=== PATIENT | female | born 1950 | race Caucasian/White ===

== ENCOUNTER 2016-08-05 16:18 | Outpatient (CLI) | payer MEDICARE, OTHER | END 2016-08-05 16:19 | disposition home or self-care (01) | DX: E56.1 Deficiency of vitamin K (principal); R73.09 Other abnormal glucose; E55.9 Vitamin D deficiency, unspecified ==

== ENCOUNTER 2017-02-04 11:35 | Outpatient (CLI) | payer MEDICARE, OTHER ==
[~2017-02-04 11:35] MED LIST: GADOBUTROL 7.5 MMOL/7.5 ML VIAL ONE
[2017-02-04 12:09] LABS: CREATININE 0.7 mg/dL (0.4-1.0)
[2017-02-04] MEDS ORDERED: GADOBUTROL 7.5 MMOL/7.5 ML VIAL IVP ONE (13:09)
--- NOTE | 2017-02-04 14:46 | MRI Report ---
EXAM: MRI BRAIN WITHOUT AND WITH CONTRAST EXAM DATE: 02/04/2017 01:44 PM. CLINICAL HISTORY: 66-year-old with history of benign brain tumor presenting with headache COMPARISON: MR brain 08/19/2015, 01/29/2010, and prior's. TECHNIQUE: Multiplanar, multisequence T1-weighted and fluid-sensitive MR sequences of the brain were performed. Sequences optimized for routine evaluation. Other: None. Without and with IV Contrast: 6 c c GADAVIST. FINDINGS: Brain Volume: Normal for age. Parenchyma/Dura: Again seen is a patchy area of enhancement within the medial right temporal lobe wit h extension into the right amygdala that measures approximately 10 x 13 x 19 mm (CC by TR by AP) that is unchanged in size or signal intensity from 08/19/2015. The lesion demonstrates minimal to mild T2/ FLAIR signal hyperintensity similar to prior study. There are associated susceptibility artifact with in the lesion that is unchanged from prior study. No new acute parenchymal hemorrhage, mass, or midline shift. Additional areas of T2/FLAIR signal hype rintensity seen similar to 08/19/2015.No areas of restricted diffusion to suggest acute infarct. No de finite new abnormal areas of susceptibility artifact. No new abnormal post-contrast enhancement. Pituitary: Normal. Ventricles/Cisterns: No definite abnormal extra-axial fluid collection/mass seen. Ventricles and sulc i appear age appropriate. Cisterns are patent. Fluid is seen within Meckel's caves. 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 Sinuses: Visualized paranasal sinuses appear clear. Mastoid air cells and middle ear cavities appear clear. Orbits: Normal. Vasculature: Visualized major intracranial flow voids appear maintained. Dural sinuses appear patent. Bones: Normal. Other: None. IMPRESSION: 1. Again seen is a patchy enhancing lesion within the medial right temporal lobe with small volume ex tension of the right amygdala that appears unchanged in size or signal characteristics from 08/19/2015 . 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 2. No acute infarct, acute intracranial hemorrhage, additional lesion, hydrocephalus, or additional a bnormal postcontrast enhancement. 3. Scattered white matter changes that appear similar to MR 08/19/2015 and while nonspecific may repre sent sequela of chronic small vessel ischemic disease. [facility] Referring Provider Line: [phone] SITE ID: [id number]
== END 2017-02-04 11:36 | disposition home or self-care (01) ==
LOC: LAB 11:35
PROVIDERS: ATTEND Nurse Practitioner Primary Care
DX: G93.9 Disorder of brain, unspecified (principal); R51 Headache
CPT/HCPCS: 36415; 70553; 82565; A9585

== ENCOUNTER 2017-06-15 08:00 | Outpatient (CLI) | payer MEDICARE, OTHER | END 2017-06-15 08:01 | disposition home or self-care (01) | LOC: LAB.R 08:00 | PROVIDERS: ATTEND Nurse Practitioner Primary Care | DX: M25.519 Pain in unspecified shoulder (principal); M54.2 Cervicalgia | CPT/HCPCS: 85651; 86140 ==

== ENCOUNTER 2017-06-24 10:25 | Outpatient (CLI) | payer MEDICARE, OTHER ==
--- NOTE | 2017-06-24 14:13 | XRAY Report ---
TWO VIEW CHEST: 06/24/2017 CLINICAL INDICATION: Upper respiratory infection. FINDINGS: Frontal and lateral views of the chest demonstrate a normal cardiac silhouette. The lungs are clear. No effusion or pneumothorax is present. IMPRESSION: NORMAL CHEST. TD: 06/24/2017 14:12
== END 2017-06-24 10:26 | disposition home or self-care (01) ==
LOC: DI 10:25
PROVIDERS: ATTEND Physician Assistant Medical
DX: J06.9 Acute upper respiratory infection, unspecified (principal)
CPT/HCPCS: 71046

== ENCOUNTER 2017-07-01 08:00 | Outpatient (CLI) | payer MEDICARE, OTHER ==
[2017-07-01 12:35] LABS: BASOPHILS % (AUTO) 0.6 %; EOSINOPHILS # (AUTO) 0.1 10^3/uL (0.0-0.7); EOSINOPHILS % (AUTO) 1.4 %; HGB - HEMOGLOBIN 14.9 g/dL (12.0-16.0); LYMPHOCYTES # (AUTO) 1.6 10^3/uL (1.5-3.5); LYMPHOCYTES % (AUTO) 19.1 %; MEAN CORPUSCULAR HEMOGLOBIN 28.7 pg (27.0-31.0); MEAN CORPUSCULAR HGB CONC 34.4 g/dL (32.0-36.0); MEAN CORPUSCULAR VOLUME 83.4 fL (81.0-99.0); MEAN PLATELET VOLUME 7.9 fL (7.9-10.8); MONOCYTES # (AUTO) 0.6 10^3/uL (0.0-1.0); MONOCYTES % (AUTO) 7.4 %; NEUTROPHILS % (AUTO) 71.5 %; PLT - PLATELET COUNT 263 10^3/uL (130-450); RED BLOOD COUNT 5.18 10^6/uL (4.20-5.40); WHITE BLOOD COUNT 8.4 x10^3/uL (4.8-10.8)
[2017-07-01 13:34] LABS: ALBUMIN 4.4 g/dL (3.2-5.5); ALBUMIN/GLOBULIN RATIO 1.2 (1.0-2.2); BILIRUBIN,TOTAL 0.7 mg/dL (0.2-1.0); CREATININE 0.9 mg/dL (0.4-1.0)
== END 2017-07-01 08:01 | disposition home or self-care (01) ==
LOC: LAB.R 08:00
PROVIDERS: ATTEND Physician Assistant Medical
DX: R53.1 Weakness (principal)
CPT/HCPCS: 80053; 85025

== ENCOUNTER 2017-07-08 08:00 | Outpatient (CLI) | payer MEDICARE, OTHER | END 2017-07-08 08:01 | disposition home or self-care (01) | LOC: LAB.R 08:00 | PROVIDERS: ATTEND Physician Assistant Medical | DX: J02.9 Acute pharyngitis, unspecified (principal) | CPT/HCPCS: 87070 ==

== ENCOUNTER 2017-08-19 12:45 | Outpatient (CLI) | payer MEDICARE, OTHER ==
[2017-08-19 13:12] LABS: CREATININE 0.7 mg/dL (0.4-1.0)
[2017-08-19] MEDS ORDERED: GADOBUTROL 7.5 MMOL/7.5 ML VIAL ONE (13:48)
--- NOTE | 2017-08-19 14:41 | CT Report ---
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 TECHNIQUE: Axial CT images of the chest were obtained without contrast. High resolution 1 mm supine inspiratory, supine expiratory and prone inspiratory images were obtained, in addition to a conventional noncontrast chest CT was performed. COMPARISON: No previous CT is available for comparison. FINDINGS: Allowing for the lack of intravenous contrast enhancement, the heart and great vessels are unremarkable. No hilar or mediastinal lymphadenopathy is present. No axillary adenopathy is seen. The lungs demonstrate subpleural blebs, predominantly in the lower lobes. There is no evidence of a spontaneous pneumothorax. There is a noncalcified pulmonary nodule in the anterior right lower lobe, measuring 6 mm (axial image 34). Minimal atelectatic changes are present. No effusion or pneumothorax is present. High resolution images reveal no evidence of interstitial lung disease. Limited evaluation of upper abdominal structures demonstrates normal adrenal glands. A small hiatal hernia is present. Osseous structures demonstrate degenerative changes. IMPRESSION: SUBPLEURAL LUNG CYSTS, COMPATIBLE WITH [id number]-[id number] SYNDROME. NO EVIDENCE OF PNEUMOTHORAX. 6 MM NONCALCIFIED PULMONARY NODULE IN THE ANTERIOR RIGHT LOWER LOBE (AXIAL IMAGE 34). FOLLOWUP SCAN IN 6 MONTHS IS RECOMMENDED TO EVALUATE FOR STABILITY. CT DOSE REDUCTION STATEMENT In accordance with CT protocol optimization, one or more of the following dose reduction techniques were utilized for this exam: automated exposure control, adjustment of mA and/or KV based on patient size, or use of iterative reconstructive technique. TD: 08/19/2017 14:40
== END 2017-08-19 12:46 | disposition home or self-care (01) ==
LOC: LAB 12:45
PROVIDERS: ATTEND Nurse Practitioner Primary Care
DX: J98.4 Other disorders of lung (principal); C65.9 Malignant neoplasm of unspecified renal pelvis
CPT/HCPCS: 36415; 71250; 82565

== ENCOUNTER 2017-08-26 07:43 | Outpatient (CLI) | payer MEDICARE, OTHER ==
[2017-08-26] MEDS ORDERED: GADOBUTROL 7.5 MMOL/7.5 ML VIAL ONE (08:09)
[2017-08-26] MEDS ORDERED: GADOBUTROL 7.5 MMOL/7.5 ML VIAL IVP ONE (09:06)
--- NOTE | 2017-08-26 14:48 | MRI Report ---
EXAM: MR ABDOMEN WITH AND WITHOUT CONTRAST (MR KIDNEYS) EXAM DATE: 08/26/2017 09:21 AM. 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 Rule out renal mass. COMPARISON: None. TECHNIQUE: Multiplanar breath-hold T1, T2, and DWI sequences obtained through the kidneys and abdomen on an MR scanner. Images obtained before and after administration of 6 mL Gadavist intravenous contr ast. Multiphase sequences obtained through the kidneys. FINDINGS: Kidneys: Normal size and contour. A 6 mm left upper interpolar cyst. No solid nodule or suspicious le jaden. Normal parenchymal enhancement without hydronephrosis. No perinephric fluid. 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 Mildly decreased parenc hymal signal on opposed a screening echo suggests mild steatosis. A 5 mm cyst in the left lobe. No hy pervascular or suspicious lesion identified. The liver dome is partially clipped. Gallbladder/Bile Ducts: Unremarkable. No gallbladder filling defect or wall thickening. Upper normal caliber CBD for age at 7 mm. No intrahepatic ductal dilatation. Pancreas: No significant findings. Spleen: Normal. Adrenals: No nodule. Other: No obvious intestinal abnormality. No free fluid or adenopathy. Unremarkable abdominal aorta. No marrow replacement process identified. IMPRESSION: 1. A small left renal cyst. Otherwise unremarkable kidneys. No renal mass. 2. Mild hepatic steatosis. [facility] Referring Provider Line: [phone] SITE ID: [id number]
== END 2017-08-26 07:44 | disposition home or self-care (01) ==
LOC: DI 07:43
PROVIDERS: ATTEND Nurse Practitioner Primary Care
DX: N28.1 Cyst of kidney, acquired (principal); K76.0 Fatty (change of) liver, not elsewhere classified
CPT/HCPCS: 74183; A9585

== ENCOUNTER 2017-09-01 08:18 | Outpatient (CLI) | payer MEDICARE, OTHER ==
[2017-09-01 12:53] LABS: BASOPHILS % (AUTO) 0.6 %; EOSINOPHILS # (AUTO) 0.1 10^3/uL (0.0-0.7); EOSINOPHILS % (AUTO) 1.6 %; LYMPHOCYTES # (AUTO) 1.5 10^3/uL (1.5-3.5); LYMPHOCYTES % (AUTO) 25.2 %; MEAN CORPUSCULAR HEMOGLOBIN 27.8 pg (27.0-31.0); MEAN CORPUSCULAR HGB CONC 33.2 g/dL (32.0-36.0); MEAN CORPUSCULAR VOLUME 83.7 fL (81.0-99.0); MEAN PLATELET VOLUME 8.9 fL (7.9-10.8); MONOCYTES # (AUTO) 0.5 10^3/uL (0.0-1.0); MONOCYTES % (AUTO) 8.7 %; NEUTROPHILS # (AUTO) 3.9 10^3/uL (1.5-6.6); NEUTROPHILS % (AUTO) 63.9 %; PLT - PLATELET COUNT 230 10^3/uL (130-450); RED BLOOD COUNT 4.33 10^6/uL (4.20-5.40); WHITE BLOOD COUNT 6.1 x10^3/uL (4.8-10.8)
[2017-09-01 13:15] LABS: ALBUMIN 4.3 g/dL (3.2-5.5); ALBUMIN/GLOBULIN RATIO 1.5 (1.0-2.2); ALKALINE PHOSPHATASE 81 IU/L (42-121); ALT ALANINE AMINOTRANSFERASE 17 IU/L (10-60); AST ASPARTATE AMINOTRANSFERASE 20 IU/L (10-42); BILIRUBIN,TOTAL 0.4 mg/dL (0.2-1.0); BUN - BLOOD UREA NITROGEN 19 mg/dL (6-20); CALCIUM 9.1 mg/dL (8.5-10.3); CARBON DIOXIDE - CO2 27 mmol/L (21-32); CHLORIDE 103 mmol/L (101-111); CHOL/HDL RATIO 4.1 (<4.4); CHOLESTEROL 195 mg/dL; CREATININE 0.6 mg/dL (0.4-1.0); GFR - MDRD 100 (>89); GLUCOSE 98 mg/dL (70-100); HDL CHOLESTEROL 48 mg/dL; LDL CHOLESTEROL,CALCULATED 112 mg/dL; LDL/HDL RATIO 2.3 (<4.4); SODIUM 136 mmol/L (135-145); TOTAL PROTEIN 7.1 g/dL (6.7-8.2); VLDL CHOLESTEROL 35 mg/dL
== END 2017-09-01 08:19 | disposition home or self-care (01) ==
LOC: LAB.N 08:18
PROVIDERS: ATTEND Nurse Practitioner Primary Care
DX: D68.2 Hereditary deficiency of other clotting factors (principal); Z79.899 Other long term (current) drug therapy; Z13.29 Encounter for screening for other suspected endocrine disorder; Z13.6 Encounter for screening for cardiovascular disorders
CPT/HCPCS: 36415; 80053; 80061; 83721; 84443; 85025

== ENCOUNTER 2017-09-06 10:52 | Outpatient (CLI) | payer MEDICARE, OTHER ==
--- NOTE | 2017-09-07 15:08 | Mammography Report ---
DIGITAL SCREENING MAMMOGRAM: 09/06/2017 CLINICAL INDICATION: A 67-year-old with history of benign biopsies for screening. COMPARISON: 10/2015. TECHNIQUE: Routine CC and MLO projections as well as bilateral laterally exaggerated craniocaudal views were obtained of the breasts. FINDINGS: The breasts again demonstrate heterogeneously dense fibroglandular parenchyma bilaterally. Post-biopsy changes are stable. Coarse and punctate, typically benign calcifications are present. No suspicious masses, clustered microcalcifications, or regions of architectural distortion are identified. IMPRESSION: BENIGN FINDINGS. RECOMMENDATION: Routine annual screening unless otherwise clinically indicated. BIRADS CATEGORY 2 - BENIGN FINDINGS. STANDARD QUALIFYING STATEMENTS: 1. This examination was reviewed with the aid of Computer-Aided Detection (CAD). 2. A negative or benign imaging report should not delay biopsy if clinically suspicious findings are present. Consider surgical consultation if warranted. More than 5% of cancers are not identified by imaging. 3. Dense breasts may obscure an underlying neoplasm. TD: 09/07/2017 15:07
== END 2017-09-06 10:53 | disposition home or self-care (01) ==
LOC: DI.N 10:52
PROVIDERS: ATTEND Internal Medicine
DX: Z12.31 Encounter for screening mammogram for malignant neoplasm of breast (principal)
CPT/HCPCS: 77067

== ENCOUNTER 2017-10-28 11:57 | Outpatient (CLI) | payer MEDICARE, OTHER ==
--- NOTE | 2017-11-09 16:12 | DEXA Report ---
Procedure Date: 10/28/2017 Accession Number: [id number] / [id number] Procedure: DEX - Dexa Spine and/or Hip CPT Code: FULL RESULT: EXAM: Dexa Spine and/or Hip DATE: 10/28/2017 12:31 PM CLINICAL HISTORY: POST MENOPAUSAL TECHNIQUE: Dual energy x-ray absorptiometry (DXA) was performed on a [employer] System. Regions measured are the AP Spine, femoral neck, and if needed forearm. COMPARISON: 10/29/2015 In accordance with the International Society for Clinical Densitometry (ISCD) guidelines, data from previous exams may be reanalyzed using current recommendations and techniques. This is done to allow a more accurate basis for comparison with the current study. FINDINGS: The data for the lumbar spine is as follows: BMD (g/cm/cm) T-SCORE Z-SCORE REGION L1 1.071 -0.5 1.2 L2 1.243 0.4 2.0 L3 1.366 1.4 3.1 TOTAL 1.229 0.5 2.2 NOTE: All evaluable vertebrae are used for classification The data for the hip is as follows: BMD (g/cm/cm) T-SCORE Z-SCORE REGION Neck 0.669 -2.7 -1.0 TOTAL 0.706 -2.4 -1.0 NOTE: The femoral neck or total proximal femur, whichever is lowest, is used for classification. DXA RESULTS SUMMARY: Spine SCAN DATE AGE BMD BMD CHANGE BMD CHANGE VS BASELINE PREVIOUS [age] 1.89 0.074* 6.4* 10[age]29/2015 [age] 1[age]155 -- -- * Denotes significant change at the 95% confidence level. Denotes dissimilar scan types or analysis methods. DXA RESULTS SUMMARY: Hip SCAN DATE AGE BMD BMD CHANGE BMD CHANGE VS BASELINE PREVIOUS 10/28/2017 67.5 0.706 -0.059* -7.7* 10[age]29/2015 [age] 0[age]765 -- -- * Denotes significant change at the 95% confidence level. Denotes dissimilar scan types or analysis methods. IMPRESSION: THE WHO CLASSIFICATION BASED ON THE INTERNATIONAL REFERENCE STANDARD IS OSTEOPOROSIS. THE FRACTURE RISK IS HIGH. RECOMMENDATION: Patients with diagnosis of osteoporosis or osteopenia should have regular bone mineral density assessment. For those eligible for Medicare, routine testing is allowed once every 2 years. Testing frequency can be increased for patients who have rapidly progressing disease or for those who are receiving medical therapy to restore bone mass. COMMENT: World Health Organization (WHO) definitions for osteoporosis and osteopenia: NORMAL BMD: T-score at -1.0 or higher, fracture risk is low OSTEOPENIA BMD: T-score between -1.0 and -2.5, fracture risk is increased. OSTEOPOROSIS BMD: T-score at -2.5 or lower, fracture risk is high. National Osteoporosis Foundation recommends: 1. Obtain adequate dietary calcium (at least 1200 mg per day) and vitamin D (400-800 international units per day). 2. Participate, as appropriate, in regular weightbearing and muscle-strengthening exercise. 3. Avoid tobacco use and reduce alcohol and caffeine intake. 4. For more detailed information see the website at www.NOF.org.
== END 2017-10-28 11:58 | disposition home or self-care (01) ==
LOC: DI 11:57
PROVIDERS: ATTEND Nurse Practitioner Primary Care
DX: M81.0 Age-related osteoporosis without current pathological fracture (principal)
CPT/HCPCS: 77080

== ENCOUNTER 2018-02-18 10:44 | Outpatient (CLI) | payer MEDICARE, OTHER ==
--- NOTE | 2018-02-18 16:21 | CT Report ---
Reason: PULMONARY NODULE Procedure Date: 02/18/2018 Accession Number: [id number] / [id number] Procedure: CT - Chest W/O CPT Code: FULL RESULT: EXAM: CT CHEST EXAM DATE: 02/18/2018 11:21 AM. CLINICAL HISTORY: Pulmonary nodule. COMPARISONS: Chest w/o contrast 08/19/2017 1:04 PM. TECHNIQUE: Routine helical CT imaging was performed through the chest. IV contrast: None. Reconstructions: Coronal and sagittal. In accordance with CT protocol optimization, one or more of the following dose reduction techniques were utilized for this exam: automated exposure control, adjustment of mA and/or KV based on patient size, or use of iterative reconstructive technique. FINDINGS: Lungs/Pleura: The previously described right lower lobe ovoid well-circumscribed nodule with subjective suggestion of fatty hilum medially now measures 6.0 x 3.6 x 3.0 mm on image 31 series 3 and image 30 series 6. The appearance is suggestive of a lymph node with less common location. No new nodules, bronchial thickening, consolidation, or edema. Pulmonary vasculature is normal. No pericardial or pleural effusion. No pneumothorax. Scant lung cysts are again seen. Mediastinum: Normal. No adenopathy or masses. The heart and great vessels are normal. Bones: No aggressive osseous lesions. Visualized Abdomen: Sliding hiatal hernia. Calcification in the region of the pancreatic tail is unchanged. Other: None. IMPRESSION: Stable 6 mm nodule in the right lower lobe with benign appearance. Per Fleischner Society, recommend CT follow-up in 12 months. If the finding is unchanged at that time, no further follow-up will be required. [facility]
== END 2018-02-18 10:45 | disposition home or self-care (01) ==
LOC: DI 10:44
PROVIDERS: ATTEND Nurse Practitioner Primary Care
DX: R91.1 Solitary pulmonary nodule (principal)
CPT/HCPCS: 71250

== ENCOUNTER 2018-04-07 08:00 | Outpatient (CLI) | payer MEDICARE, OTHER ==
[2018-04-07 17:12] LABS: BILIRUBIN,URINE NEGATIVE (NEGATIVE); CLARITY,URINE CLEAR (CLEAR); GLUCOSE, URINE (UA) NEGATIVE (NEGATIVE); KETONES,URINE (UA) NEGATIVE (NEGATIVE); LEUKOCYTE ESTERASE, URINE NEGATIVE (NEGATIVE); NITRITE,URINE NEGATIVE (NEGATIVE); OCCULT BLOOD,URINE SMALL (NEGATIVE); PROTEIN,URINE NEGATIVE (NEGATIVE); UROBILINOGEN,URINE 0.2 (NORMAL) E.U./dL (NORMAL)
== END 2018-04-07 23:59 | disposition home or self-care (01) ==
LOC: LAB.R 08:00
PROVIDERS: ATTEND Nurse Practitioner Primary Care
DX: R10.84 Generalized abdominal pain (principal)
CPT/HCPCS: 81003

== ENCOUNTER 2018-09-26 08:00 | Outpatient (CLI) | payer MEDICARE, OTHER ==
[2018-09-26 12:55] LABS: ALBUMIN 4.3 g/dL (3.2-5.5); ALBUMIN/GLOBULIN RATIO 1.5 (1.0-2.2); ALKALINE PHOSPHATASE 95 IU/L (42-121); ALT ALANINE AMINOTRANSFERASE 23 IU/L (10-60); AST ASPARTATE AMINOTRANSFERASE 24 IU/L (10-42); BASOPHILS % (AUTO) 0.5 %; BILIRUBIN,TOTAL 0.5 mg/dL (0.2-1.0); BUN - BLOOD UREA NITROGEN 16 mg/dL (6-20); CALCIUM 9.6 mg/dL (8.5-10.3); CARBON DIOXIDE - CO2 26 mmol/L (21-32); CHLORIDE 104 mmol/L (101-111); CHOL/HDL RATIO 4.4 (<4.4); CHOLESTEROL 203 mg/dL; CREATININE 0.8 mg/dL (0.4-1.0); EOSINOPHILS # (AUTO) 0.2 10^3/uL (0.0-0.7); EOSINOPHILS % (AUTO) 3.6 %; GFR - MDRD 71 (>89); GLUCOSE 107 mg/dL (70-100); HDL CHOLESTEROL 46 mg/dL; HGB - HEMOGLOBIN 10.2 g/dL (12.0-16.0); LDL CHOLESTEROL,CALCULATED 111 mg/dL; LDL/HDL RATIO 2.4 (<4.4); LYMPHOCYTES # (AUTO) 1.1 10^3/uL (1.5-3.5); LYMPHOCYTES % (AUTO) 18.8 %; MEAN CORPUSCULAR HEMOGLOBIN 21.2 pg (27.0-31.0); MEAN CORPUSCULAR HGB CONC 30.9 g/dL (32.0-36.0); MEAN CORPUSCULAR VOLUME 68.7 fL (81.0-99.0); MEAN PLATELET VOLUME 8.5 fL (7.9-10.8); MONOCYTES # (AUTO) 0.5 10^3/uL (0.0-1.0); MONOCYTES % (AUTO) 8.2 %; NEUTROPHILS # (AUTO) 4.2 10^3/uL (1.5-6.6); NEUTROPHILS % (AUTO) 68.9 %; PLT - PLATELET COUNT 271 10^3/uL (130-450); RED BLOOD COUNT 4.79 10^6/uL (4.20-5.40); RED CELL DISTRIBUTION WIDTH 18.2 % (12.0-15.0); SODIUM 139 mmol/L (135-145); TOTAL PROTEIN 7.2 g/dL (6.7-8.2); VLDL CHOLESTEROL 46 mg/dL
[2018-09-26 13:27] LABS: PLATELET ESTIMATE, MANUAL NORMAL (130-450,000) (NORMAL); PLATELET MORPHOLOGY RARE GIANT PLATELETS (NORMAL)
== END 2018-09-26 23:59 | disposition home or self-care (01) ==
LOC: LAB.N 08:00
PROVIDERS: ATTEND Nurse Practitioner
DX: I47.1 Supraventricular tachycardia (principal); Z79.899 Other long term (current) drug therapy; E55.9 Vitamin D deficiency, unspecified; D68.2 Hereditary deficiency of other clotting factors; F41.9 Anxiety disorder, unspecified; Z82.49 Family history of ischemic heart disease and other diseases of the circulatory system
CPT/HCPCS: 36415; 80053; 80061; 82306; 83721; 84443; 85025

== ENCOUNTER 2018-10-07 08:00 | Outpatient (CLI) | payer MEDICARE, OTHER ==
[2018-10-07 12:36] LABS: ABSOLUTE RETICS # AUTO 0.091 10^6/uL (0.020-0.110); BASOPHILS # (AUTO) 0.1 10^3/uL (0.0-0.1); BASOPHILS % (AUTO) 0.7 %; EOSINOPHILS # (AUTO) 0.4 10^3/uL (0.0-0.7); EOSINOPHILS % (AUTO) 5.2 %; HGB - HEMOGLOBIN 10.2 g/dL (12.0-16.0); LYMPHOCYTES # (AUTO) 1.2 10^3/uL (1.5-3.5); LYMPHOCYTES % (AUTO) 14.4 %; MEAN CORPUSCULAR HEMOGLOBIN 22.3 pg (27.0-31.0); MEAN CORPUSCULAR HGB CONC 31.8 g/dL (32.0-36.0); MEAN CORPUSCULAR VOLUME 70.1 fL (81.0-99.0); MEAN PLATELET VOLUME 8.2 fL (7.9-10.8); MEAN RETIC VALUE 98.3; MONOCYTES # (AUTO) 0.7 10^3/uL (0.0-1.0); MONOCYTES % (AUTO) 8.2 %; NEUTROPHILS # (AUTO) 5.8 10^3/uL (1.5-6.6); NEUTROPHILS % (AUTO) 71.5 %; PLT - PLATELET COUNT 279 10^3/uL (130-450); RED BLOOD COUNT 4.57 10^6/uL (4.20-5.40); RED CELL DISTRIBUTION WIDTH 17.9 % (12.0-15.0); WHITE BLOOD COUNT 8.1 x10^3/uL (4.8-10.8)
[2018-10-07 13:18] LABS: % IRON SATURATION 5 % (20-50); IRON 17 ug/dL (28-170); TOTAL IRON BINDING CAPACITY 353 ug/dL (250-450); TRANSFERRIN 252 mg/dL (192-382)
== END 2018-10-07 23:59 | disposition home or self-care (01) ==
LOC: LAB.N 08:00
PROVIDERS: ATTEND Nurse Practitioner
DX: D64.9 Anemia, unspecified (principal)
CPT/HCPCS: 36415; 82728; 83540; 84466; 85025; 85044

== ENCOUNTER 2018-10-07 11:33 | Outpatient (CLI) | payer MEDICARE, OTHER ==
--- NOTE | 2018-10-07 15:48 | XRAY Report ---
Reason: COUGH Procedure Date: 10/07/2018 Accession Number: [id number] / [id number] Procedure: XR - Chest 2 View X-Ray CPT Code: 19940 FULL RESULT: EXAM: CHEST RADIOGRAPHY EXAM DATE: 10/07/2018 11:54 AM. CLINICAL HISTORY: COUGH. Low-grade fever COMPARISON: 02/18/2018 CT and chest x-ray 06/24/2017. TECHNIQUE: 2 views. FINDINGS: Lungs/Pleura: Focal obscuration of the left hemidiaphragm suggests left lower lobe airspace process. No other focal opacities evident. No pleural effusion. No pneumothorax. Normal volumes. Mediastinum: Heart and mediastinal contours are unremarkable. Other: Minor degenerative change in the spine. IMPRESSION: Left lower lobe airspace process. Follow-up to complete radiographic clearing suggested. [facility]
== END 2018-10-07 11:34 | disposition home or self-care (01) ==
LOC: DI 11:33
PROVIDERS: ATTEND Nurse Practitioner
DX: R05 Cough (principal); D64.9 Anemia, unspecified
CPT/HCPCS: 36415; 71046; 82728; 83540; 84466; 85025; 85044

== ENCOUNTER 2018-10-11 08:00 | Outpatient (CLI) | payer MEDICARE, OTHER | END 2018-10-11 23:59 | disposition home or self-care (01) | LOC: LAB.R 08:00 | PROVIDERS: ATTEND Nurse Practitioner | DX: D64.9 Anemia, unspecified (principal) | CPT/HCPCS: 82274 ==

== ENCOUNTER 2018-10-17 09:20 | Outpatient (CLI) | payer MEDICARE, OTHER ==
--- NOTE | 2018-10-17 09:58 | XRAY Report ---
Reason: COUGH Procedure Date: 10/17/2018 Accession Number: [id number] / [id number] Procedure: WCP - Chest 2 View X-Ray CPT Code: 96747 FULL RESULT: EXAM: CHEST RADIOGRAPHY EXAM DATE: 10/17/2018 09:39 AM. CLINICAL HISTORY: COUGH. COMPARISON: CHEST 2 VIEW 10/07/2018 11:51 AM. TECHNIQUE: 2 views. FINDINGS: Lungs/Pleura: No focal opacities evident. No pleural effusion. No pneumothorax. Normal volumes. Mediastinum: Heart and mediastinal contours are unremarkable. Other: None. IMPRESSION: Normal 2-view chest radiography. [facility]
== END 2018-10-17 09:21 | disposition home or self-care (01) ==
LOC: DI.WCP 09:20
PROVIDERS: ATTEND Family Medicine
DX: R05 Cough (principal)
CPT/HCPCS: 71046

== ENCOUNTER 2018-11-05 21:43 | Emergency (ER) | payer MEDICARE, OTHER ==
[2018-11-05 22:30] LABS: BASOPHILS % (AUTO) 0.3 %; EOSINOPHILS # (AUTO) 0.7 10^3/uL (0.0-0.7); EOSINOPHILS % (AUTO) 8.2 %; HGB - HEMOGLOBIN 10.8 g/dL (12.0-16.0); LYMPHOCYTES # (AUTO) 1.6 10^3/uL (1.5-3.5); LYMPHOCYTES % (AUTO) 18.3 %; MEAN CORPUSCULAR HEMOGLOBIN 21.3 pg (27.0-31.0); MEAN CORPUSCULAR VOLUME 73.2 fL (81.0-99.0); MEAN PLATELET VOLUME 9.8 fL (7.9-10.8); MONOCYTES % (AUTO) 11.4 %; NEUTROPHILS # (AUTO) 5.4 10^3/uL (1.5-6.6); NEUTROPHILS % (AUTO) 61.3 %; PLT - PLATELET COUNT 312 10^3/uL (130-450); RED BLOOD COUNT 5.08 10^6/uL (4.20-5.40); RED CELL DISTRIBUTION WIDTH 18.4 % (12.0-15.0); WHITE BLOOD COUNT 8.7 x10^3/uL (4.8-10.8)
[2018-11-05 22:43] LABS: ALBUMIN 4.3 g/dL (3.2-5.5); ALBUMIN/GLOBULIN RATIO 1.3 (1.0-2.2); BILIRUBIN,TOTAL 0.6 mg/dL (0.2-1.0); CALCIUM 9.7 mg/dL (8.5-10.3); CREATININE 0.9 mg/dL (0.4-1.0); TOTAL PROTEIN 7.6 g/dL (6.7-8.2)
--- NOTE | 2018-11-05 22:46 | ED Physician Documentation ---
PD HPI NVD - Stated complaint Stated Complaint: BLOODY STOOL - Chief complaint Chief Complaint: Abd Pain - History obtained from History obtained from: Patient - History of Present Illness Timing - onset: Today (She is been sick with respiratory symptoms for the referral of a month. She is on doxycycline a few weeks ago, but has not been on it for few weeks. Tonight she has had some abdominal cramps but no pain per se with some diarrhea and blood on the toilet paper more than in the stool. She denies weakness or syncope. She had a last colonoscopy about 4 years ago with diverticular disease.) Review of Systems Constitutional: denies: Fever, Chills Nose: reports: Rhinorrhea / runny nose, Other (sneezing) Respiratory: denies: Dyspnea, Hemoptysis GI: reports: Nausea (for weeks), Diarrhea, Bloody / black stool. denies: Abdominal Pain, Vomiting, Hematemesis PD PAST MEDICAL HISTORY - Past Medical History Past Medical History: Yes Cardiovascular: Other Respiratory: Other Musculoskeletal: Osteoarthritis - Past Surgical History Ortho: Spine surgery - Allergies Allergies/Adverse Reactions: Allergies Allergy/AdvReac Type Severity Reaction Status Date / Time morphine AdvReac Itching Verified 11/05/18 21:51 - Social History Does the pt smoke?: No Smoking Status: Never smoker Does the pt drink ETOH?: No Does the pt have substance abuse?: No - Immunizations Immunizations are current?: Yes - POLST Patient has POLST: No PD ED PE NORMAL - Vitals Vital signs reviewed: Yes - General General: Alert and oriented X 3, No acute distress - Abdomen Abdomen: Normal bowel sounds, Soft, Non tender - Rectal Rectal: Other (no ext hemorrhoids, no gross blood) - Derm Derm: Normal color, Warm and dry - Extremities Extremities: No edema, No calf tenderness / cord - Neuro Neuro: Alert and oriented X 3 Results - Vitals Vitals: Vital Signs - 24 hr 11/05/18 11/05/18 11/05/18 21:48 21:50 22:57 Temperature 36.3 C L Heart Rate 110 H 110 H 11 L Respiratory 18 18 16 Rate Blood Pressure 145/89 H 145/89 H 135/83 H O2 Saturation 97 97 96 Oxygen O2 Source Room air - Labs Labs: Laboratory Tests 11/05/18 11/05/18 11/05/18 22:20 22:20 22:20 WBC 8.7 RBC 5.08 Hgb 10.8 L Hct 37.2 MCV 73.2 L MCH 21.3 L MCHC 29.0 L RDW 18.4 H Plt Count 312 MPV 9.8 Neut # (Auto) 5.4 Lymph # (Auto) 1.6 Benton # (Auto) 1.0 Eos # (Auto) 0.7 Baso # (Auto) 0.0 Absolute Nucleated RBC 0.00 Nucleated RBC % 0.0 PT 12.4 INR 1.1 Sodium 138 Potassium 3.4 L Chloride 105 Carbon Dioxide 22 Anion Gap 11.0 BUN 18 Creatinine 0.9 Estimated GFR (MDRD) 62 L Glucose 144 H Calcium 9.7 Total Bilirubin 0.6 AST 18 ALT 19 Alkaline Phosphatase 99 Total Protein 7.6 Albumin 4.3 Globulin 3.3 Albumin/Globulin Ratio 1.3 Lipase 41 PD MEDICAL DECISION MAKING - ED course ED course: 68yo woman with seemingly stable LGI bleed assoc with diarrhea, could be infectious. H/H slightly better than last draw. Stool sent. Advised need for c- scope, RTED if worse. Departure - Departure Disposition: 01 Home, Self Care Clinical Impression: Diarrhea, Hematochezia Condition: Good Record reviewed to determine appropriate education?: Yes Health Concerns: She presents with diarrhea that is bloody, no external hemorrhoids. Her hemoglobin is stable to slightly higher than her last. Plan of Treatment: Watchful waiting at home, stool culture and C. difficile tests. To follow-up with primary care physician for referral for colonoscopy. To return if worse. Instructions: ED Hematochezia Stable Discharge Date/Time: 11/05/18 22:57
[2018-11-05 22:48] LABS: INR 1.1 (0.8-1.2); PT - PROTHROMBIN TIME 12.4 secs (9.9-12.6)
[2018-11-05 22:58] VITALS: BP 135/83
== END 2018-11-05 22:57 | disposition home or self-care (01) ==
LOC: ED 21:43
DX: K92.1 Melena (principal); R19.7 Diarrhea, unspecified
CPT/HCPCS: 36415; 80053; 83690; 85025; 85610; 86850; 86900; 86901; 87045; 87046; 87493; 99283

== ENCOUNTER 2018-11-17 18:58 | Outpatient (CLI) | payer MEDICARE, OTHER ==
--- NOTE | 2018-11-17 21:21 | Ultrasound Report ---
Reason: GALLBLADDER DISORDER Procedure Date: 11/17/2018 Accession Number: [id number] / [id number] Procedure: US - Abdomen Complete CPT Code: FULL RESULT: EXAM: ABDOMEN ULTRASOUND EXAM DATE: 11/17/2018 07:12 PM. CLINICAL HISTORY: Gallbladder disorder. Pain. COMPARISON: ABDOMEN W/WO 08/26/2017 8:00 AM. TECHNIQUE: Real-time scanning was performed with static images obtained. FINDINGS: Liver: Diffusely echogenic. Previously described left lobe cyst not clearly visualized. Small hypoechoic nodule in right lobe measuring 1.3 x 1.4 x 1.8 cm with some subtle vascularity suggesting it may be solid. Overall normal sized, 15.5 cm. Main portal vein flow: Hepatopetal. Gallbladder: Small non-mobile echogenicity measuring about 0.4 cm in diameter. No definite stones, wall thickening, or localized tenderness. Biliary System: Common bile duct measures 6 mm. No intrahepatic or extrahepatic ductal dilatation. Pancreas: Echogenic pancreas. Otherwise unremarkable. Kidneys: Right: 10.0 cm longitudinally. Normal. No contour-deforming mass, stones, or hydronephrosis. Left: 10.5 cm longitudinally. Normal. No contour-deforming mass, stones, or hydronephrosis. Spleen: 10.1 x 3.6 x 7.8 cm. Normal in size and echotexture. Aorta and Inferior Vena Cava: Unremarkable. Other: None. IMPRESSION: 1. Fatty liver. 2. Small hypoechoic nodule in the right lobe with questionable vascularity. Further characterization with dedicated CT scan is recommended. 3. Small gallbladder polyp. [facility]
== END 2018-11-17 18:59 | disposition home or self-care (01) ==
LOC: DI 18:58
PROVIDERS: ATTEND Family Medicine
DX: K76.0 Fatty (change of) liver, not elsewhere classified (principal); K82.4 Cholesterolosis of gallbladder; K76.9 Liver disease, unspecified
CPT/HCPCS: 76700

== ENCOUNTER 2018-11-21 10:19 | Outpatient (CLI) | payer MEDICARE, OTHER ==
[2018-11-21] MEDS ORDERED: SINCALIDE 5 MCG VIAL ONE (11:35)
[2018-11-21] MEDS ORDERED: SINCALIDE 1.2 MCG in SODIUM CHLORIDE 0.9% 50 ML IV ONE (13:20)
--- NOTE | 2018-11-22 08:48 | Nuclear Medicine Report ---
Reason: GALLBLADDER DISORDER Procedure Date: 11/21/2018 Accession Number: [id number] / [id number] Procedure: NM - Hepatobiliary HIDA w/ Rx CPT Code: FULL RESULT: EXAM: HEPATOBILIARY SCAN WITH CCK/KINEVAC ADMINISTRATION EXAM DATE: 11/21/2018 01:01 PM. CLINICAL HISTORY: GALLBLADDER DISORDER. Right-sided abdominal pain. COMPARISON: ABDOMEN COMPLETE 11/17/2018 7:12 PM. TECHNIQUE: Following the intravenous administration of 5.4 mCi of Tc99m Mebrofenin, a hepatobiliary scan was done centered on the liver and gallbladder in multiple sequential images and projections. Following the intravenous administration of 1.2 mcg of CCK/ Kinevac over the course of approximately 60 minutes, dynamic imaging was done and the gallbladder ejection fraction was calculated. FINDINGS: Normal extraction of tracer from the blood pool indicating normal hepatocellular function. The liver size and shape is grossly within normal limits. There is activity visualized within the bile ducts, gallbladder, and small bowel during the first hour. With CCK administration, the gallbladder demonstrates an effective contraction. The gallbladder ejection fraction is calculated to be 94%, well above the lower limit of normal of 38% for a 60-minute injection. The patient did not report symptoms after CCK administration. No evidence of enteric reflux into the stomach. IMPRESSION: 1. Patent cystic duct. 2. Patent common bile duct. 3. Negative for acute or chronic cholecystitis. 4. No enterogastric bile reflux. 5. Gallbladder ejection fraction of 94%. SOFÍAA
== END 2018-11-21 10:20 | disposition home or self-care (01) ==
LOC: DI 10:19
PROVIDERS: ATTEND Family Medicine
DX: K82.9 Disease of gallbladder, unspecified (principal)
CPT/HCPCS: 78227; J7040

== ENCOUNTER 2019-01-10 14:17 | Outpatient (CLI) | payer MEDICARE, OTHER | END 2019-01-10 14:18 | disposition home or self-care (01) | LOC: RT 14:17 | PROVIDERS: ATTEND Nurse Practitioner | DX: J45.991 Cough variant asthma (principal) | CPT/HCPCS: 94010 ==

== ENCOUNTER 2019-01-16 18:39 | Inpatient (IN) | payer MEDICARE, OTHER ==
[2019-01-16 19:54] LABS: BILIRUBIN,URINE NEGATIVE (NEGATIVE); GLUCOSE, URINE (UA) NEGATIVE (NEGATIVE); KETONES,URINE (UA) TRACE mg/dL (NEGATIVE); LEUKOCYTE ESTERASE, URINE NEGATIVE (NEGATIVE); NITRITE,URINE NEGATIVE (NEGATIVE); OCCULT BLOOD,URINE MODERATE (NEGATIVE); PROTEIN,URINE NEGATIVE (NEGATIVE); UROBILINOGEN,URINE 0.2 (NORMAL) E.U./dL (NORMAL)
[2019-01-16 19:55] LABS: CLARITY,URINE CLEAR (CLEAR)
[2019-01-16 20:02] LABS: BACTERIA,URINE None Seen /HPF (None Seen); MUCUS,URINE Moderate Strands; RBC,URINE 0-5 /HPF (0-5); SQUAMOUS EPITHELIAL CELL,UR NONE SEEN (<= Few)
[2019-01-16 20:44] LABS: BASOPHILS # (AUTO) 0.1 10^3/uL (0.0-0.1); BASOPHILS % (AUTO) 0.3 %; EOSINOPHILS # (AUTO) 0.2 10^3/uL (0.0-0.7); EOSINOPHILS % (AUTO) 1.5 %; HGB - HEMOGLOBIN 12.1 g/dL (12.0-16.0); LYMPHOCYTES # (AUTO) 1.7 10^3/uL (1.5-3.5); MEAN CORPUSCULAR HEMOGLOBIN 23.2 pg (27.0-31.0); MEAN CORPUSCULAR HGB CONC 30.6 g/dL (32.0-36.0); MEAN PLATELET VOLUME 9.3 fL (7.9-10.8); MONOCYTES # (AUTO) 1.1 10^3/uL (0.0-1.0); MONOCYTES % (AUTO) 7.3 %; NEUTROPHILS % (AUTO) 79.2 %; PLT - PLATELET COUNT 348 10^3/uL (130-450); RED BLOOD COUNT 5.21 10^6/uL (4.20-5.40); RED CELL DISTRIBUTION WIDTH 20.3 % (12.0-15.0); WHITE BLOOD COUNT 15.2 x10^3/uL (4.8-10.8)
[2019-01-16 20:56] LABS: ALBUMIN 4.4 g/dL (3.2-5.5); ALBUMIN/GLOBULIN RATIO 1.2 (1.0-2.2); BILIRUBIN,TOTAL 0.4 mg/dL (0.2-1.0); CALCIUM 9.4 mg/dL (8.5-10.3); CREATININE 0.8 mg/dL (0.4-1.0)
[2019-01-16 21:04] LABS: PLATELET ESTIMATE, MANUAL NORMAL (130-450,000) (NORMAL); PLATELET MORPHOLOGY NORMAL APPEARANCE (NORMAL)
--- NOTE | 2019-01-16 21:27 | ED Physician Documentation ---
PD HPI ABD PAIN - Stated complaint Stated Complaint: FEVER/ABD PAIN - Chief complaint Chief Complaint: Abd Pain - History obtained from History obtained from: Patient - History of Present Illness Timing - onset: How many weeks ago (1) Timing - duration: Weeks (1) Timing - details: Gradual onset, Waxing and waning Pain level max: 8 Pain level now: 6 Quality: Aching, Pain Location: RLQ Radiation: No: Chest, , Lower back, Left flank, Left shoulder, Right flank, Right shoulder, Upper back Improved by: Laying still Worsened by: Moving Associated symptoms: Nausea, Dysuria. No: Fever, Vomiting, Hematemesis, Diarrhea, Constipation, Melena, Hematochezia, Vaginal bleeding, Vaginal dc Similar symptoms before: Has not had sx before Recently seen: Not recently seen Review of Systems Ten Systems: 10 systems reviewed and negative Constitutional: denies: Fever, Chills Respiratory: denies: Cough GI: denies: Vomiting, Constipation, Diarrhea Skin: denies: Rash Musculoskeletal: denies: Neck pain, Back pain Neurologic: denies: Numbness, Headache PD PAST MEDICAL HISTORY - Past Medical History Past Medical History: Yes Cardiovascular: Other (tachycardia) Respiratory: Other Musculoskeletal: Osteoarthritis - Past Surgical History Ortho: Spine surgery - Present Medications Home Medications: Ambulatory Orders Medication Instructions Recorded Confirmed Albuterol Sulfate [Proair Hfa 1 - 2 puffs INH PRN PRN 01/16/19 01/16/19 Inhaler] Fluticasone Propion/Salmeterol 1 cap INH DAILY 01/16/19 01/16/19 [Wixela 100-50 Inhub] Meloxicam 1 tab PO DAILY 01/16/19 01/16/19 Saccharomyces Boulardii [Florastor] 1 cap PO DAILY 01/16/19 01/16/19 raNITIdine [Zantac] 1 tab PO DAILY 01/16/19 01/16/19 - Allergies Allergies/Adverse Reactions: Allergies Allergy/AdvReac Type Severity Reaction Status Date / Time morphine AdvReac Itching Verified 01/16/19 19:24 - Social History Does the pt smoke?: No Smoking Status: Never smoker Does the pt drink ETOH?: No Does the pt have substance abuse?: No - Immunizations Immunizations are current?: Yes - POLST Patient has POLST: No PD ED PE NORMAL - Vitals Vital signs reviewed: Yes - General General: Alert and oriented X 3, No acute distress - HEENT HEENT: Moist mucous membranes - Neck Neck: Supple, no meningeal sign - Cardiac Cardiac: RRR - Respiratory Respiratory: No respiratory distress, Clear bilaterally - Abdomen Abdomen: Soft, Non distended, Other (TTP RLQ at McBurney's point. No peritoneal signs.) - Back Back: No CVA TTP, No spinal TTP - Derm Derm: Warm and dry, No rash - Neuro Neuro: Alert and oriented X 3 Results - Vitals Vitals: Vital Signs - 24 hr 01/16/19 01/16/19 01/16/19 19:20 21:09 21:59 Temperature 37.7 C H 37.9 C H 37.9 C H Heart Rate 142 H 132 H 104 H Respiratory 20 18 17 Rate Blood Pressure 141/103 H 159/100 H 137/86 H O2 Saturation 97 100 96 01/16/19 23:09 Temperature 37.7 C H Heart Rate 94 Respiratory 16 Rate Blood Pressure 135/82 H O2 Saturation 98 Oxygen O2 Source Room air - Labs Labs: Laboratory Tests 01/16/19 01/16/19 01/16/19 19:40 20:39 20:39 WBC 15.2 H RBC 5.21 Hgb 12.1 Hct 39.6 MCV 76.0 L MCH 23.2 L MCHC 30.6 L RDW 20.3 H Plt Count 348 MPV 9.3 Neut # (Auto) 12.0 H Lymph # (Auto) 1.7 [place] # (Auto) 1.1 H Eos # (Auto) 0.2 Baso # (Auto) 0.1 Absolute Nucleated RBC 0.00 Nucleated RBC % 0.0 Manual Slide Review Indicated WBC Morphology NORMAL APPEARANCE Platelet Estimate NORMAL (130-450,000) Platelet Morphology NORMAL APPEARANCE RBC Morph Micro Appear 1+ MICROCYTOSIS Sodium 138 Potassium 4.1 Chloride 103 Carbon Dioxide 24 Anion Gap 11.0 BUN 16 Creatinine 0.8 Estimated GFR (MDRD) 71 L Glucose 119 H Calcium 9.4 Total Bilirubin 0.4 AST 18 ALT 17 Alkaline Phosphatase 98 Total Protein 8.0 Albumin 4.4 Globulin 3.6 Albumin/Globulin Ratio 1.2 Lipase 26 Urine Color YELLOW Urine Clarity CLEAR Urine pH 6.0 Ur Specific [place] 1.010 Urine Protein NEGATIVE Urine Glucose (UA) NEGATIVE Urine Ketones TRACE Urine Occult Blood MODERATE H Urine Nitrite NEGATIVE Urine Bilirubin NEGATIVE Urine Urobilinogen 0.2 (NORMAL) Ur Leukocyte Esterase NEGATIVE Urine RBC 0-5 Urine WBC 0-3 Ur Squamous Epith Cells NONE SEEN Urine Bacteria None Seen Urine Mucus Moderate Strands Ur Microscopic Review INDICATED Urine Culture Comments NOT INDICATED - Rads (name of study) CT abd/pelvis Radiology: Prelim report reviewed, EMP read contemporaneously, See rad report (1. The distal appendix is dilated and fluid-filled. At the base of the appe ndix/cecum, there is a 5.5 x 5.7 x 5.3 cm complex cystic and solid mass favored represent abscess/phlegmon in the setting of perforated appendicitis, however, perforated cecal mass not excluded. No free intraperitoneal air. This mass abuts the dome of the bladder and may be adherent, however, there is no bladder wall thickening. Recommend surgical consultation. 2. Within the peripheral aspect of the right lobe of the liver, there are 2 hypoenhancing masses, one measuring 2.8 cm and the other measuring 1.7 cm. Findings favored to represent hepatic abscesses, however, metastatic disease cannot be completely excluded. 3. There is a 5 mm pulmonary nodule within the right lower lobe. Recommend nonemergent CT chest for further evaluation. 4. Hysterectomy. 5. Other chronic findings detailed above. ) PD MEDICAL DECISION MAKING - ED course Complexity details: reviewed results, re-evaluated patient, considered differential, d/w patient, d/w family, d/w project consultant ED course: 68-year-old female presents to the emergency department with right lower quadrant abdominal pain for the past week. Has a leukocytosis. Appears to have an appendicitis along with a perforation and abscess/phlegmon on in the cecum. Also potentially has liver abscesses. Discussed the case with Dr. Mcintyre, general surgery who will evaluate the patient. Given IV zosyn and flagyl. Will admit. This document was made in part using voice recognition software. While efforts are made to proofread this document, sound alike and grammatical errors may occur. Departure - Departure Disposition: [facility] DC/Xfer Clinical Impression: Appendicitis Qualifiers: Appendicitis type: acute appendicitis Acute appendicitis type: with localized peritonitis Appendicitis gangrene presence: unspecified whether gangrene present Appendicitis perforation presence: with perforation Appendicitis abscess presence: with abscess Qualified Code(s): K35.33 - Acute appendicitis with perforation and localized peritonitis, with abscess Condition: Stable
[2019-01-16] MEDS ORDERED: IOVERSOL 320 100 ML VIAL IVP ONE ×2 (22:10→22:22)
[2019-01-16] MEDS ORDERED: PIPERACILLIN/TAZOBACTAM 3.375 GM in SODIUM CHLORIDE 0.9% MINIBAG 100 ML IV STA (22:45)
[2019-01-16] MEDS ORDERED: metroNIDAZOLE 500 MG/100 ML 500 MG/100 ML BAG IV ONE (22:45)
--- NOTE | 2019-01-16 23:18 | CT Report ---
Reason: RLQ abd pain Procedure Date: 01/16/2019 Accession Number: [id number] / [id number] Procedure: CT - Abdomen/Pelvis W CPT Code: FULL RESULT: EXAM: CT ABDOMEN AND PELVIS EXAM DATE: 01/16/2019 10:23 PM. CLINICAL HISTORY: Right lower quadrant abdominal pain. COMPARISONS: None. TECHNIQUE: Routine helical CT imaging was performed through the abdomen and pelvis. IV contrast: 100 cc Optiray 320. Enteric contrast: No. Reconstructions: Coronal and sagittal. In accordance with CT protocol optimization, one or more of the following dose reduction techniques were utilized for this exam: automated exposure control, adjustment of mA and/or KV based on patient size, or use of iterative reconstructive technique. FINDINGS: Images chest: Small hiatal hernia. Scarring the left lingula and scattered air cysts in the lung bases. There is a 5 mm pulmonary nodule within the right lower lobe. Liver: Within the peripheral aspect of the right lobe of the liver, there are 2 hypoenhancing masses, one measuring 2.8 cm and the other measuring 1.7 cm. Gallbladder: Unremarkable. Biliary: Unremarkable. Pancreas: Unremarkable. Spleen: Unremarkable. Adrenal glands: Unremarkable. Kidneys: Unremarkable. Urinary bladder: The below described complex cystic and solid mass adjacent to the cecum/appendix abuts the dome of the bladder without obvious bladder wall thickening. Reproductive organs: Hysterectomy. Bowel: Sigmoid and descending colonic diverticulosis without obvious evidence of diverticulitis. Stomach: Unremarkable. Appendix: The distal appendix is dilated and fluid-filled. At the base of the appendix/cecum, there is a 5.5 x 5.7 x 5.3 cm complex cystic and solid mass favored represent abscess/phlegmon in the setting of perforated appendicitis, however, perforated cecal mass not excluded. Miscellaneous: No free fluid. No extraluminal gas. Aorta: Mild aortic atherosclerosis. Normal in caliber. Lymph nodes: There are several prominent and borderline enlarged lymph nodes in the right lower quadrant mesentery. Bones: Status post L4-L5 disk replacement. No suspicious osseous lesions. Sidewalls: Unremarkable. IMPRESSION: 1. The distal appendix is dilated and fluid-filled. At the base of the appendix/cecum, there is a 5.5 x 5.7 x 5.3 cm complex cystic and solid mass favored represent abscess/phlegmon in the setting of perforated appendicitis, however, perforated cecal mass not excluded. No free intraperitoneal air. This mass abuts the dome of the bladder and may be adherent, however, there is no bladder wall thickening. Recommend surgical consultation. 2. Within the peripheral aspect of the right lobe of the liver, there are 2 hypoenhancing masses, one measuring 2.8 cm and the other measuring 1.7 cm. Findings favored to represent hepatic abscesses, however, metastatic disease cannot be completely excluded. 3. There is a 5 mm pulmonary nodule within the right lower lobe. Recommend nonemergent CT chest for further evaluation. 4. Hysterectomy. 5. Other chronic findings detailed above. RAD[facility] The call report notification system was initiated by Dr. Marysol Mosher at 10:55 PM on 01/16/2019. The above call report findings were discussed with Eldon Hernandez by Dr. Marysol Mosher at 10:58 PM on 01/16/2019.
--- NOTE | 2019-01-17 00:18 | CONSULTATION NOTE ---
Referring Provider Name of Referring Provider:: Dr. Hernandez Consult Date: 01/17/19 Chief Complaint - Chief Complaint Chief Complaint: abdominal pain History of Present Illness - Admitted From Admitted From:: ER - History Obtained From Records Reviewed: yes History obtained from: pt, records Exam Limitations: none - History of Present Illness HPI Comment/Other: 68 yo female with 1 week of intermittent pressure type of RLQ abd pain which became worse today prompting evaluation in the ER. She also noted a fever to 100.9 today, new for her. No N/V, chills, change in bowel habits, melena or hematochezia (except episode of bloody diarrhea 3 months ago which has resolved and for which infectious w/u was negative.) No recent wt changes or FH GI tumors. She has a hx last month of RUQ pain radiating into her right flank with a w/u which included an abd US showing a possible 4 mm gb polyp and a HIDA scan which was nl. These sx have resolved. She reports a colonoscopy in 2014 which showed benign polyps and a 5 or 10 yr f/u was advised. No acute respiratory or urinary sx. s/p hysterectomy for benign disease. Evaluation in the ER included WBC 15K, and CT abd/pelvis showing a complex cystic/solid mass at cecal base involving a markedly dilated appendix c/w complicated appendicitis vs perforated cecal carcinoma. Several lesions were noted in the liver c/w small abscesses or mets. Surgical consultation was requested. She reports hx of "tachycardia" treated in past with flecainide, but she stopped taking the med due to its expense. She notes frequent palpitations but no syncope, or hx MO or chest pain. 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 - Substance History Use: Uses substance without health or social issues: NONE - POLST Patient has POLST: No Meds/Allgy - Home Medications Home Medications: Ambulatory Orders Medication Instructions Recorded Confirmed Albuterol Sulfate [Proair Hfa 1 - 2 puffs INH PRN PRN 01/16/19 01/16/19 Inhaler] Fluticasone Propion/Salmeterol 1 cap INH DAILY 01/16/19 01/16/19 [Wixela 100-50 Inhub] Meloxicam 1 tab PO DAILY 01/16/19 01/16/19 Saccharomyces Boulardii [Florastor] 1 cap PO DAILY 01/16/19 01/16/19 raNITIdine [Zantac] 1 tab PO DAILY 01/16/19 01/16/19 - Allergies Allergies/Adverse Reactions: Allergies Allergy/AdvReac Type Severity Reaction Status Date / Time morphine AdvReac Itching Verified 01/16/19 19:24 Review of Systems - Constitutional Constitutional: reports: Fever, Poor appetite. denies: Chills, Diaphoresis, Night sweats, Weight gain, Weight loss - Cardiovascular Cariovascular: reports: Irregular heart rate, Palpitations. denies: Chest pain, Edema, Lightheadedness, Syncope - Respiratory Respiratory: denies: Cough, Sputum production - Gastrointestinal Gastrointestinal: reports: Abdominal pain, Black stools (dark on iron supplements), Reflux/heartburn. denies: Constipation, Diarrhea, Change in bowel habits, Rectal bleeding, Bloody stools, Nausea, Vomiting - Genitourinary Genitourinary: denies: Dysuria - Hematologic/Lymphatic Hematologic/Lymphatic: reports: Anemia (hx iron deficiency anemia). denies: Blood clots, Bleeding tendencies, Recurrent infections - All Other Systems All Other Systems: reports: Reviewed and negative (or covered in HPI/PMH) Exam - Vital Signs Reviewed Vital Signs: Yes Vital Signs: Vital Signs x48h Temp Pulse Resp BP Pulse Ox 01/16/19 23:09 37.7 C H 94 16 135/82 H 98 01/16/19 21:59 37.9 C H 104 H 17 137/86 H 96 01/16/19 21:09 37.9 C H 132 H 18 159/100 H 100 01/16/19 19:20 37.7 C H 142 H 20 141/103 H 97 - Physical Exam General Appearance: positive: Alert, Mild distress Eyes Bilateral: positive: Normal inspection, Conjunctivae nml, No scleral icterus ENT: positive: ENT inspection nml, Pharynx nml, No signs of dehydration Neck: positive: Nml inspection, Thyroid nml, No JVD, Trachea midline. negative: Lymphadenopathy (R), Lymphadenopathy (L) Respiratory: positive: Chest non-tender, No respiratory distress, Breath sounds nml. negative: Wheezes, Rales, Rhonchi Cardiovascular: positive: Regular rate & rhythm, No murmur, No gallop Peripheral Pulses: positive: 2+ Abdomen: positive: No organomegaly, Nml bowel sounds, No distention, Tenderness (RLQ and suprapubic with mild voluntary guarding, no peritoneal signs;), Guarding, Other (suprapubic and LLQ transverse surgical scars). negative: Rebound, Hepatomegaly, Splenomegaly, Mass Skin: positive: Color nml, No rash, Warm, Dry. negative: Cyanosis Extremities: positive: Non-tender, Nml appearance, No pedal edema. negative: Calf tenderness Neurologic/Psychiatric: positive: Oriented x3 Conclusion/Plan - Diagnosis Diagnosis: 1. 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 2. small liver lesions x 2: abscesses vs metastases per radiologic interpretation. 3. hx cardiac arrythmia. 4. hx BHD syndrome [id number]; increased risk for renal ca and spont pneumothorax; no evidence of either at present. - Plan Plan: Agree with admission to hospitalist service, cardiac clearance, NPO, IVF, broad spectrum antibiotic therapy; surgery in am: diagnostic laparoscopy, appendectomy, possible open procedure, possible right colectomy. Detailed PAR conf with pt and consent obtained. - Lab Results Fish Bones: 01/16/19 20:39 01/16/19 20:39 - Diagnostic Imaging Results Diagnostic Imaging Results: positive: Final report reviewed, Read independently Diagnostic Imaging Results Comments: See HPI
[2019-01-17] MEDS ORDERED: ONDANSETRON 4 MG/2 ML VIAL IVP PRN (00:25)
[2019-01-17] MEDS ORDERED: HYDROmorphone 1 MG/ML CARPUJECT IVP PRN (01:06)
--- NOTE | 2019-01-17 01:06 | HISTORY & PHYSICAL EXAMINATION ---
Chief Complaint - Chief Complaint Chief Complaint: Abdominal pain History of Present Illness - Admitted From Admitted From:: Home - History Obtained From Records Reviewed: Yes History obtained from: Patient, EMR - History of Present Illness HPI Comment/Other: This is a 68 year old female with history of junctional tachycardia, GERD, Asthma who presents from home complaining of abdominal pain on and off for the past week. The pain became more prominent today and she spiked a temperature of 100.5 at home and so she seeked medical attention. She denies nausea, vomiting, and chills. She also denies chest pain and dyspnea. She is able to walk up a flight of stairs without symptoms. She reports no prior history of [place] or heart failure. She does have a history of junctional tachycardia that was diagnosed in 2007. She was treated with flecainide at that time. She reports she did well with the medication but she stopped taking it due to issues with her insurance and the cost of the medication. She has been off off it for >5 years now. She no longer sees a rehabilitation services aide. She reports palpitations at times but for the most part, she feels well. In the ER, she was febrile, tachycardic, and slightly hypertensive. Labs were significant for a white count of 15 with a left shift. CT of the abdomen/pelvis was concerning for perforated appendicits or cecal mass with an abscess. There were also two hypoenhancing lesions in the liver concerning for abscess or metastatic disease. Given these findings, she will be admitted for further management. History - Past Medical History Cardiovascular: reports: Arrhythmia (Junctional tachycardia). 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 Breast biopsy x 2 for benign disease) - Family & Social History Family History Comment/Other: She reports a family history of diabetes. Denies family history of GI malignancies. Living arrangement: At home Living Situation: With spouse/s.o. Social History Notes: She does not smoke. - Substance History Use: Uses substance without health or social issues: NONE - POLST Patient has POLST: No Meds/Allgy - Home Medications Home Medications: Ambulatory Orders Medication Instructions Recorded Confirmed Albuterol Sulfate [Proair Hfa 1 - 2 puffs INH PRN PRN 01/16/19 01/16/19 Inhaler] Fluticasone Propion/Salmeterol 1 cap INH DAILY 01/16/19 01/16/19 [Wixela 100-50 Inhub] Meloxicam 1 tab PO DAILY 01/16/19 01/16/19 Saccharomyces Boulardii [Florastor] 1 cap PO DAILY 01/16/19 01/16/19 raNITIdine [Zantac] 1 tab PO DAILY 01/16/19 01/16/19 - Allergies Allergies/Adverse Reactions: Allergies Allergy/AdvReac Type Severity Reaction Status Date / Time morphine AdvReac Itching Verified 01/16/19 19:24 Review of Systems - Constitutional Constitutional: reports: Fever. denies: Fatigue, Chills, Weakness, Poor appetite - Cardiovascular Cariovascular: reports: Palpitations. denies: Chest pain, Edema, Exertional dyspnea, Decr. exercise tolerance - Respiratory Respiratory: denies: Cough, Orthopnea, SOB at rest, SOB with exertion - Gastrointestinal Gastrointestinal: reports: Abdominal pain. denies: Nausea, Vomiting - Genitourinary Genitourinary: denies: Dysuria, Frequency - Integumentary Integumentary: denies: Rash - Neurological Neurological: denies: General weakness, Focal weakness - All Other Systems All Other Systems: reports: Reviewed and negative Prior Level of Functionality: Independent with ADL's. Exam - Vital Signs Vital Signs: Vital Signs x48h Temp Pulse Resp BP Pulse Ox 01/17/19 00:26 37.3 C 96 16 134/83 H 97 01/16/19 23:09 37.7 C H 94 16 135/82 H 98 01/16/19 21:59 37.9 C H 104 H 17 137/86 H 96 01/16/19 21:09 37.9 C H 132 H 18 159/100 H 100 01/16/19 19:20 37.7 C H 142 H 20 141/103 H 97 - Physical Exam General Appearance: positive: No acute distress, Alert Eyes Bilateral: positive: Normal inspection ENT: positive: ENT inspection nml, No signs of dehydration Respiratory: positive: No respiratory distress, Breath sounds nml. negative: Wheezes, Rales, Rhonchi Cardiovascular: positive: No murmur, Tachycardia. negative: Bradycardia, Systolic murmur, Diastolic murmur Abdomen: positive: No distention, Tenderness (Most prominent in the RLQ and RUQ). negative: Non-tender, Guarding, Rebound Skin: positive: No rash, Warm, Dry Extremities: positive: No pedal edema Neurologic/Psychiatric: positive: Oriented x3, Motor nml. negative: Disoriented to person, Disoriented to place, Disoriented to time Sepsis Event Note (H) - Evaluation Current Stage of Sepsis: Sepsis Possible source of Sepsis: positive: GI tract/intra-abdominal - Sepsis Criteria Sepsis Criteria: Recorded Heart Rate greater than 90 bpm, WBC count greater than 12,000 or less than 4000 Conclusion/Plan - Problem List (1) Sepsis Conclusion/Plan: Secondary to perforated appendicitis with abscess. Presented with fevers, leukocytosis w/ left shift, and tachycardia. No hypotension or lactic acidosis. No other obvious source of infection. - Zosyn IV to cover for gram negative and anaerobes - IV hydration - Follow up blood cultures (2) Appendicitis with abscess Conclusion/Plan: This is the source of her sepsis. Evident on CT of the abdomen/pelvic. Concerning for perforated appendicitis or cecal mass. Complicated by abscess. - Zosyn IV - Dilaudid PRN pain - Zofran PRN - IV hydration - NPO for OR this morning - General surgery is aware of the patient and I spoke with Dr. Mcintyre personally to discuss the case (3) Pre-op evaluation Conclusion/Plan: She does have a history of junctional tachycardia that was treated with fecainide in the past. EKG today reveals a sinus rhythm without ST segment changes. She is able to perform >4 MET's. No history of diabetes, [place], heart failure. No murmur on exam. She appears euvolemic and denies chest pain/dyspnea at this time. Summers Risk score is 0.14% given her history and abdominal surgery for a perioperative cardiac event. - She is optimized from a cardiac point of view and no further workup is necessary prior to her surgery today - Monitor on telemetry postoperatively (4) Liver masses Conclusion/Plan: Evident on CT of abdomen/pelvis and concerning for abscess vs metastatic diseas e. - IV antibiotics - Will hope to visualize the liver in the OR today and obtain possible biopsy (5) Asthma Conclusion/Plan: Stable. Not in exacerbation. On Fluticasone/Salmeterol at home. - Duoneb PRN (6) GERD (gastroesophageal reflux disease) Conclusion/Plan: Stable. On Ranitidine at home. - Protonix IV while NPO - Lab Results Lab results reviewed: Yes Fish Bones: 01/16/19 20:39 01/16/19 20:39 - Diagnostic Imaging Results Diagnostic Imaging Results: positive: Final report reviewed - EKG Results EKG Interpreted Independently: Yes EKG Comparison: No prior EKG EKG Findings: Sinus rhythm without ST segment changes. Core Measures - Anticipated LOS I expect patient to be DC'd or transferred within 96 hours.: Yes - Issues Hospital Issues and Management Plan: Perforated appendicitis/cecal mass requiring intervention in the OR. - DVT/VTE - Prophylaxis VTE/DVT Device ordered at admit?: Yes VTE/DVT Prophylaxis med ordered at admit?: Yes
[2019-01-17] MEDS: LACTATED RINGERS 1,000 ML IV SCH ×2 (01:22→11:00)
[2019-01-17] MEDS: SODIUM CHLORIDE FLUSH 0.9% 10 ML SYRINGE IVP SCH ×3 (01:22→19:39)
[2019-01-17] MEDS ORDERED: IPRATROPIUM/ALBUTEROL 3 ML NEB INH PRN (01:28)
[2019-01-17 05:16] LABS: BASOPHILS % (AUTO) 0.3 %; EOSINOPHILS # (AUTO) 0.3 10^3/uL (0.0-0.7); EOSINOPHILS % (AUTO) 2.3 %; HGB - HEMOGLOBIN 10.6 g/dL (12.0-16.0); LYMPHOCYTES # (AUTO) 1.4 10^3/uL (1.5-3.5); MEAN CORPUSCULAR HEMOGLOBIN 22.6 pg (27.0-31.0); MEAN CORPUSCULAR VOLUME 75.1 fL (81.0-99.0); MEAN PLATELET VOLUME 9.3 fL (7.9-10.8); MONOCYTES % (AUTO) 8.7 %; NEUTROPHILS # (AUTO) 8.7 10^3/uL (1.5-6.6); NEUTROPHILS % (AUTO) 76.3 %; PLT - PLATELET COUNT 298 10^3/uL (130-450); RED CELL DISTRIBUTION WIDTH 19.8 % (12.0-15.0); WHITE BLOOD COUNT 11.5 x10^3/uL (4.8-10.8)
[2019-01-17 05:27] LABS: CALCIUM 8.9 mg/dL (8.5-10.3); CREATININE 0.7 mg/dL (0.4-1.0); MAGNESIUM 2.2 mg/dL (1.7-2.8); PHOSPHORUS 2.9 mg/dL (2.5-4.6)
[2019-01-17] MEDS: PANTOPRAZOLE 40 MG VIAL IVP SCH (06:02)
[2019-01-17] MEDS: PIPERACILLIN/TAZOBACTAM 4.5 GM in SODIUM CHLORIDE 0.9% MINIBAG 100 ML IV SCH ×3 (06:04→19:38)
[2019-01-17] MEDS: SODIUM CHLORIDE FLUSH 0.9% 10 ML SYRINGE IVP PRN ×2 (06:13→06:43)
[2019-01-17] MEDS ORDERED: HEPARIN 5,000 UNIT/ML VIAL SUBQ SCH (09:00)
[2019-01-17] MEDS ORDERED: MAGNESIUM CITRATE 296 ML BOTTLE PO ONE (09:28)
[2019-01-17] MEDS ORDERED: SENNA 8.6 MG TABLET PO SCH (10:00)
[2019-01-17] MEDS ORDERED: SODIUM/POTASSIUM/MAG SULFATES 354 ML PREP KIT PO SCH (10:00)
--- NOTE | 2019-01-17 10:49 | PROVIDER PROGRESS NOTE ---
Assessment/Plan - Problem List (1) Appendicitis with abscess Assessment/Plan: Stable, receiving hydration and antibiotics, preop optimization appears nearly complete; Plan: to OR later today for diagnostic laparosocopy, possible appy, possible right colectomy, possible open procedure.Discussed again with pt and she wishes to proceed. Will add mechanical bowel prep this am in case right colectomy will be necessary. (2) Liver masses Assessment/Plan: stable; likely due to abscesses or neoplasm; plan: attempt visualization/biopsy at time of surgery later today. - Current Meds Current Meds: Current Medications Generic Name Dose Route Start Last Admin Trade Name Freq PRN Reason Stop Dose Admin Lactated Ringer's 1,000 mls @ 100 mls/hr 01/17/19 01:00 01/17/19 06:34 Lr IV 100 mls/hr .Q10H TUCKER Infusion Piperacillin Sod/Tazobactam 100 mls @ 200 mls/hr 01/17/19 06:00 01/17/19 06:34 Sod 4.5 gm/ Sodium Chloride IV Infused Q6H TUCKER Infusion Pantoprazole Sodium 40 mg 01/17/19 07:00 01/17/19 06:02 Protonix IVP 40 mg QDAC TUCKER Administration Sodium Chloride 10 ml 01/17/19 00:25 01/17/19 06:43 Normal Saline Flush 0.9% IVP 10 ml PRN PRN Administration NEEDED PER PROVIDER ORDERS Sodium Chloride 10 ml 01/17/19 01:00 01/17/19 01:22 Normal Saline Flush 0.9% IVP 10 ml 0100,0900,1700 TUCKER Administration - Lab Result Fish Bone Diagrams: 01/17/19 05:04 01/17/19 05:04 - Additional Planning My Orders: My Active Orders 01/17/19 09:53 Message to Nursing [RC] QSHIFT Subjective - Subjective Patient Reports: Feeling Better, Abdominal Pain (lower abd pain better controlled with analgesics, but persists) Objective Vital Signs: Vital Signs - 24 hr 01/16/19 01/16/19 01/16/19 19:20 21:09 21:59 Temperature 37.7 C H 37.9 C H 37.9 C H Heart Rate 142 H 132 H 104 H Heart Rate [ Brachial] Respiratory 20 18 17 Rate Blood Pressure 141/103 H 159/100 H 137/86 H Blood Pressure [Right Brachial artery] O2 Saturation 97 100 96 01/16/19 01/17/19 01/17/19 23:09 00:26 01:00 Temperature 37.7 C H 37.3 C 37.7 C H Heart Rate 94 96 Heart Rate [ 91 Brachial] Respiratory 16 16 16 Rate Blood Pressure 135/82 H 134/83 H Blood Pressure 140/77 H [Right Brachial artery] O2 Saturation 98 97 99 01/17/19 01/17/19 01/17/19 03:40 06:00 07:53 Temperature 37.1 C 37.0 C 37.1 C Heart Rate Heart Rate [ 80 82 Brachial] Respiratory 16 16 Rate Blood Pressure Blood Pressure 120/71 119/66 [Right Brachial artery] O2 Saturation 99 96 Oxygen O2 Source Room air I&O (Last 24 Hrs): Intake and Output Totals x24h 01/15/19 01/16/19 01/17/19 23:59 23:59 23:59 Intake Total 770 Output Total 825 Balance -55 General: Alert, Oriented x3, Cooperative, Mild distress HEENT: Mucous membr. moist/pink Neck: No JVD Cardiovascular: Regular rate, No murmurs, Gallops, Rubs Respiratory: Chest non-tender, No respiratory distress, Breath sounds nml Abdomen: Normal bowel sounds, No hepatospenomegaly, No masses, Other (tender in suprapubic and RLQs with voluntary guarding and localized rebound tenderness) Extremities: No edema, No tenderness/swelling - Results Results: Laboratory Results WBC 11.5 x10^3/uL (4.8-10.8) H 01/17/19 05:04 RBC 4.70 10^6/uL (4.20-5.40) 01/17/19 05:04 Hgb 10.6 g/dL (12.0-16.0) L 01/17/19 05:04 Hct 35.3 % (37.0-47.0) L 01/17/19 05:04 MCV 75.1 fL (81.0-99.0) L 01/17/19 05:04 MCH 22.6 pg (27.0-31.0) L 01/17/19 05:04 MCHC 30.0 g/dL (32.0-36.0) L 01/17/19 05:04 RDW 19.8 % (12.0-15.0) H 01/17/19 05:04 Plt Count 298 10^3/uL (130-450) 01/17/19 05:04 MPV 9.3 fL (7.9-10.8) 01/17/19 05:04 Neut # (Auto) 8.7 10^3/uL (1.5-6.6) H 01/17/19 05:04 Lymph # (Auto) 1.4 10^3/uL (1.5-3.5) L 01/17/19 05:04 [place] # (Auto) 1.0 10^3/uL (0.0-1.0) 01/17/19 05:04 Eos # (Auto) 0.3 10^3/uL (0.0-0.7) 01/17/19 05:04 Baso # (Auto) 0.0 10^3/uL (0.0-0.1) 01/17/19 05:04 Absolute Nucleated RBC 0.00 x10^3/uL 01/17/19 05:04 Nucleated RBC % 0.0 /100WBC 01/17/19 05:04 Manual Slide Review Indicated 01/16/19 20:39 WBC Morphology NORMAL APPEARANCE (NORMAL) 01/16/19 20:39 Platelet Estimate NORMAL (130-450,000) (NORMAL) 01/16/19 20:39 Platelet Morphology NORMAL APPEARANCE (NORMAL) 01/16/19 20:39 RBC Morph Micro Appear 2+ ANISOCYTOSIS (NORMAL) 1+ HYPOCHROMASIA (NORMAL) 1+ MICROCYTOSIS (NORMAL) 01/16/19 20:39 RBC Morph Micro Appear 2+ ANISOCYTOSIS (NORMAL) 1+ HYPOCHROMASIA (NORMAL) 1+ MICROCYTOSIS (NORMAL) 01/16/19 20:39 RBC Morph Micro Appear 2+ ANISOCYTOSIS (NORMAL) 1+ HYPOCHROMASIA (NORMAL) 1+ MICROCYTOSIS (NORMAL) 01/16/19 20:39 Sodium 139 mmol/L (135-145) 01/17/19 05:04 Potassium 3.8 mmol/L (3.5-5.0) 01/17/19 05:04 Chloride 107 mmol/L (101-111) 01/17/19 05:04 Carbon Dioxide 24 mmol/L (21-32) 01/17/19 05:04 Anion Gap 8.0 (6-13) 01/17/19 05:04 BUN 13 mg/dL (6-20) 01/17/19 05:04 Creatinine 0.7 mg/dL (0.4-1.0) 01/17/19 05:04 Estimated GFR (MDRD) 83 (>89) L 01/17/19 05:04 Glucose 130 mg/dL (70-100) H 01/17/19 05:04 Lactic Acid 0.7 mmol/L (0.5-2.2) 01/17/19 00:42 Calcium 8.9 mg/dL (8.5-10.3) 01/17/19 05:04 Phosphorus 2.9 mg/dL (2.5-4.6) 01/17/19 05:04 Magnesium 2.2 mg/dL (1.7-2.8) 01/17/19 05:04 Total Bilirubin 0.4 mg/dL (0.2-1.0) 01/16/19 20:39 AST 18 IU/L (10-42) 01/16/19 20:39 ALT 17 IU/L (10-60) 01/16/19 20:39 Alkaline Phosphatase 98 IU/L (42-121) 01/16/19 20:39 Total Protein 8.0 g/dL (6.7-8.2) 01/16/19 20:39 Albumin 4.4 g/dL (3.2-5.5) 01/16/19 20:39 Globulin 3.6 g/dL (2.1-4.2) 01/16/19 20:39 Albumin/Globulin Ratio 1.2 (1.0-2.2) 01/16/19 20:39 Lipase 26 U/L (22-51) 01/16/19 20:39 Urine Color YELLOW 01/16/19 19:40 Urine Clarity CLEAR (CLEAR) 01/16/19 19:40 Urine pH 6.0 PH (5.0-7.5) 01/16/19 19:40 Ur Specific [place] 1.010 (1.002-1.030) 01/16/19 19:40 Urine Protein NEGATIVE mg/dL (NEGATIVE) 01/16/19 19:40 Urine Glucose (UA) NEGATIVE mg/dL (NEGATIVE) 01/16/19 19:40 Urine Ketones TRACE mg/dL (NEGATIVE) 01/16/19 19:40 Urine Occult Blood MODERATE (NEGATIVE) H 01/16/19 19:40 Urine Nitrite NEGATIVE (NEGATIVE) 01/16/19 19:40 Urine Bilirubin NEGATIVE (NEGATIVE) 01/16/19 19:40 Urine Urobilinogen 0.2 (NORMAL) E.U./dL (NORMAL) 01/16/19 19:40 Ur Leukocyte Esterase NEGATIVE (NEGATIVE) 01/16/19 19:40 Urine RBC 0-5 /HPF (0-5) 01/16/19 19:40 Urine WBC 0-3 /HPF (0-5) 01/16/19 19:40 Ur Squamous Epith Cells NONE SEEN (<= Few) 01/16/19 19:40 Urine Bacteria None Seen /HPF (None Seen) 01/16/19 19:40 Urine Mucus Moderate Strands 01/16/19 19:40 Ur Microscopic Review INDICATED 01/16/19 19:40 Urine Culture Comments NOT INDICATED 01/16/19 19:40 Sepsis Event Note (H) - Evaluation Current Stage of Sepsis: Sepsis Possible source of Sepsis: positive: GI tract/intra-abdominal - Sepsis Criteria Sepsis Criteria: Recorded Heart Rate greater than 90 bpm, WBC count greater than 12,000 or less than 4000 ABX Reporting Has patient been on IV antibiotics over the past 48 hours?: No
--- NOTE | 2019-01-17 13:51 | ANESTHESIA ---
Pre-Anesthesia VS, & Labs - Diagnosis Diagnosis 1. 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 small liver lesions x 2: abscesses vs metastases per radiologic interpretation 3. hx cardiac arrythmia 4. hx BHD syndrome Jaoe-Xxvs-Xprq; increased risk for renal ca and spont pneumothorax; no evidence of either at present. - Procedure Diagnostic laparoscopy, possible laparotomy Vital Signs: Temp Pulse Resp BP Pulse Ox 36.2 C L 86 16 128/83 H 100 01/17/19 11:33 01/17/19 11:33 01/17/19 11:33 01/17/19 11:33 01/17/19 11:33 Height 5 ft 2 in Weight (kg) 58 kg Body Mass Index 23.3 - NPO Last Fluid Intake: 1300 ice chips - Is Patient ?: Not Applicable - Lab Results Current Lab Results: Laboratory Tests 01/17/19 05:04: Sodium 139, Potassium 3.8, Chloride 107, Carbon Dioxide 24, Anion Gap 8.0, BUN 13, Creatinine 0.7, Estimated GFR (MDRD) 83 L, Glucose 130 H, Calcium 8.9, Phosphorus 2.9, Magnesium 2.2 01/17/19 05:04: WBC 11.5 H, RBC 4.70, Hgb 10.6 L, Hct 35.3 L, MCV 75.1 L, MCH 22.6 L, MCHC 30.0 L, RDW 19.8 H, Plt Count 298, MPV 9.3, Neut # (Auto) 8.7 H, Lymph # (Auto) 1.4 L, [place] # (Auto) 1.0, Eos # (Auto) 0.3, Baso # (Auto) 0.0, Absolute Nucleated RBC 0.00, Nucleated RBC % 0.0 01/17/19 00:42: Lactic Acid 0.7 01/16/19 20:39: Sodium 138, Potassium 4.1, Chloride 103, Carbon Dioxide 24, Anion Gap 11.0, BUN 16, Creatinine 0.8, Estimated GFR (MDRD) 71 L, Glucose 119 H , Calcium 9.4, Total Bilirubin 0.4, AST 18, ALT 17, Alkaline Phosphatase 98, Total Protein 8.0, Albumin 4.4, Globulin 3.6, Albumin/Globulin Ratio 1.2, Lipase 26 01/16/19 20:39: WBC 15.2 H, RBC 5.21, Hgb 12.1, Hct 39.6, MCV 76.0 L, MCH 23.2 L , MCHC 30.6 L, RDW 20.3 H, Plt Count 348, MPV 9.3, Neut # (Auto) 12.0 H, Lymph # (Auto) 1.7, [place] # (Auto) 1.1 H, Eos # (Auto) 0.2, Baso # (Auto) 0.1, Absolute Nucleated RBC 0.00, Nucleated RBC % 0.0, Manual Slide Review Indicated, WBC Morphology NORMAL APPEARANCE, Platelet Estimate NORMAL (130-450,000), Platelet Morphology NORMAL APPEARANCE, RBC Morph Micro Appear 1+ MICROCYTOSIS Fish Bones: 01/17/19 05:04 01/17/19 05:04 Home Medications and Allergies Home Medications: Ambulatory Orders Albuterol Sulfate [Proair Hfa Inhaler] 1 - 2 puffs INH PRN PRN 01/16/19 Fluticasone Propion/Salmeterol [Wixela 100-50 Inhub] 1 puffs INH DAILY 01/16/19 Meloxicam 7.5 mg PO DAILY 01/16/19 Saccharomyces Boulardii [Florastor] 1 cap PO DAILY 01/16/19 raNITIdine [Zantac] 150 mg PO BID 01/16/19 Alendronate Sodium 70 mg PO Q7D 01/17/19 Cetirizine [ZyrTEC] 10 mg PO DAILY 01/17/19 Ipratropium/Albuterol Sulfate [Iprat-Albut 0.5-3(2.5) mg/3 ml] 3 ml IH Q6H PRN 01/17/19 Active Medications Albuterol/Ipratropium (Duoneb) 3 ml INH Q4HR PRN PRN Reason: Wheezing Hydromorphone HCl (Dilaudid Inj Carp) 1 mg IVP Q2HR PRN PRN Reason: PAIN Lactated Ringer's (Lr) 1,000 mls @ 100 mls/hr IV .Q10H TUCKER Last Admin: 01/17/19 11:00 Dose: 100 mls/hr Piperacillin Sod/Tazobactam (Sod 4.5 gm/ Sodium Chloride) 100 mls @ 200 mls/hr IV Q6H [facility] Last Infusion: 01/17/19 12:50 Dose: Infused Ondansetron HCl (Zofran Inj) 4 mg IVP Q6HR PRN PRN Reason: Nausea / Vomiting Last Admin: 01/17/19 12:52 Dose: 4 mg Pantoprazole Sodium (Protonix) 40 mg IVP QDAC [facility] Last Admin: 01/17/19 06:02 Dose: 40 mg Sodium Chloride (Normal Saline Flush 0.9%) 10 ml IVP PRN PRN PRN Reason: NEEDED PER PROVIDER ORDERS Last Admin: 01/17/19 06:43 Dose: 10 ml Sodium Chloride (Normal Saline Flush 0.9%) 10 ml IVP 0100,0900,1700 [facility] Last Admin: 01/17/19 12:53 Dose: 10 ml Albuterol Sulfate [Proair Hfa Inhaler] 1 - 2 puffs INH PRN PRN 01/16/19 Fluticasone Propion/Salmeterol [Wixela 100-50 Inhub] 1 puffs INH DAILY 01/16/19 Meloxicam 7.5 mg PO DAILY 01/16/19 Saccharomyces Boulardii [Florastor] 1 cap PO DAILY 01/16/19 raNITIdine [Zantac] 150 mg PO BID 01/16/19 Alendronate Sodium 70 mg PO Q7D 01/17/19 Cetirizine [ZyrTEC] 10 mg PO DAILY 01/17/19 Ipratropium/Albuterol Sulfate [Iprat-Albut 0.5-3(2.5) mg/3 ml] 3 ml IH Q6H PRN 01/17/19 Allergies/Adverse Reactions: Allergies Allergy/AdvReac Type Severity Reaction Status Date / Time morphine AdvReac Itching Verified 01/16/19 19:24 Anes History & Medical History - Anesthetic History Anesthesia Complications: reports: No previous complications - Medical History Cardiovascular: reports: Arrhythmia (Junctional tachycardia). 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 Breast biopsy x 2 for benign disease) Neurologic: Other Orthopedic: Spine surgery (anterior lumbar spine fusion), Other (Bilateral Vásquez's neurectomies) Exam General: Alert, Oriented x3, Cooperative, No acute distress Dental: Dentures full Upper, Dentures full Lower Mouth Openin Fingerbreadth Neck Mobility: Normal Mallampati classification: II Thyromental Distance: greater than 6 cm Respiratory: Lungs clear, Normal breath sounds, No respiratory distress, No acce ssory muscle use Cardiovascular: Regular rate, Other (systolic murmur) Mental/Cognitive Status: Alert/Oriented X3, Normal for patient Plan Anesthesia Type: General Consent for Procedure(s) Verified and Reviewed: Yes Code Status: Attempt Resuscitation ASA classification: 2-Mild systemic disease Is this case an emergency?: No
[2019-01-17] MEDS ORDERED: LIDOCAINE 1% 50 ML MDV ONE (14:49)
[2019-01-17] MEDS ORDERED: BUPIVACAINE 0.5%-EPI 1:200000 PF 10 ML VIAL ONE ×2 (14:49→15:12)
[2019-01-17] MEDS ORDERED: DEXAMETHASONE 4 MG/ML VIAL IVP ONE (15:10)
[2019-01-17] MEDS ORDERED: fentaNYL 250 MCG/5 ML VIAL IVP ONE (15:10)
[2019-01-17] MEDS ORDERED: ROCURONIUM 50 MG/5 ML VIAL IVP ONE (15:10)
[2019-01-17] MEDS ORDERED: PROPOFOL 200 MG/20 ML VIAL IVP ONE (15:10)
[2019-01-17] MEDS ORDERED: BUPIVACAINE 0.5%-EPI 1:200000 PF 30 ML VIAL SUBQ ONE ×2 (15:46)
[2019-01-17] MEDS ORDERED: LIDOCAINE 1% 10 ML MDV SUBQ ONE ×2 (15:46)
[2019-01-17] MEDS ORDERED: ALBUTEROL NEB 2.5 MG/3 ML INH PRN (15:50)
[2019-01-17] MEDS ORDERED: LACTATED RINGERS 1,000 ML IV ONE ×3 (17:27→17:56)
--- NOTE | 2019-01-17 17:45 | OPERATIVE REPORT ---
Operative Report - General Admit Date: 01/17/19 Procedure Date: 01/17/19 Planned Procedure: diagnostic laparoscopy, lap appy, possible lap right colectomy, possible liver biopsy, possible open procedure Pre-Op Diagnosis: complicated appendicitis vs perforated cecal neoplasm, Procedure Performed: Hand assisted laparoscopic right colectomy, wedge biopsy of liver Post Op Diagnosis: perforated cecal carcinoma with liver mets - Procedure Note Primary Surgeon: Bladimir Mcintyre MD FACS Anesthesia Provider: Iris Chirinos CRNA Anesthesia Technique: General ET tube, Regional block Pathology: right colon, liver biopsy IV Fluids (mL): 1,200 Estimated Blood Loss (mL): 25 Urine Output (mL): 50 Indications: RLQ pain, leukocytosis and CT abd/pelvis showing findings c/w perforated complicated appendicitis with abscess vs perforated cecal carcinoma, with liver lesions c/w abscesses vs mets. Findings: contained perforation of mass at cecal base, dilated but ow nl appearing distal appendix; multiple lesions in right lobe of liver c/w metastases. Complications: none
[2019-01-17] MEDS ORDERED: SUGAMMADEX 200 MG/2 ML VIAL IVP ONE (17:56)
[2019-01-17] MEDS ORDERED: LACTATED RINGERS 1,000 ML IV SCH (18:08)
[2019-01-17] MEDS: HYDROmorphone 0.5 MG/0.5 ML SYRINGE IVP PRN ×2 (18:19→20:43)
[2019-01-17] MEDS ORDERED: HYDROmorphone 1 MG/ML CARPUJECT ONE (18:27)
[2019-01-17] MEDS: KETOROLAC 15 MG/ML VIAL IVP SCH (18:44)
[2019-01-17] MEDS: FORMOTEROL FUMARATE NEB 20 MCG/2 ML INH SCH (19:19)
[2019-01-17] MEDS: BUDESONIDE 0.5 MG/2 ML NEB INH SCH (19:19)
--- NOTE | 2019-01-17 19:23 | OPERATIVE REPORT ---
DATE OF SERVICE: 01/17/2019 Physician: Bladimir Mcintyre MD CC to: Dr. Dubose PREOPERATIVE DIAGNOSIS: Complicated appendicitis versus perforated cecal tumor. POSTOPERATIVE DIAGNOSIS: Perforated cecal carcinoma with liver metastasis. PROCEDURE PERFORMED: Diagnostic laparoscopy, hand-assisted laparoscopic right colectomy, and wedge biopsy of the right lobe of the liver. ANESTHESIA: General endotracheal plus TAP blocks by Iris Cook CRNA and Michelle Chirinos CRNA. SURGEON: Bladimir Mcintyre MD ESTIMATED BLOOD LOSS: 25 mL COMPLICATIONS: None. DRAINS: None. FLUIDS: 1200 mL URINE OUTPUT: 50 mL FINDINGS: Laparoscopy revealed an approximately 6 cm mass at the cecal base to which the omentum was adherent. A cystic component was visible without evidence of rupture but concerning for transmural invasion. The distal 2/3 of the appendix appeared dilated, but otherwise normal. The remainder of the colon and small bowel appeared normal. Uterus was surgically absent and the ovaries were not identified. The right lobe of the liver was seen to have a visible 2 cm subcapsular yellowish colored lesion and to palpation was noted to have multiple irregular firm 3 to 4 cm masses over the dome of the liver that were not visible laparoscopically. There was no evidence of omental implants, ascites, mesenteric lymphadenopathy or free rupture of the cecal mass. INDICATIONS: Patient is a 68-year-old woman with a 1-week history of right lower quadrant pain associated with low-grade fever which caused her to present to the emergency room last night where evaluation revealed an elevated white count of 15,[address] scan of the abdomen and pelvis showing findings consistent with either complicated appendicitis with perforation and periappendiceal abscess versus perforating cecal carcinoma with 2 lesions in the right lobe of the liver, concerning for either abscesses or liver metastases. Patient was admitted and following preoperative preparation, which included hospitalist consultation, resuscitation with fluids, mechanical bowel prep and institution of broad spectrum parenteral antibiotics. Patient was advised to undergo diagnostic laparoscopy with definitive surgical treatment based on the operative findings, which might include appendectomy, right colectomy and/or liver biopsy. TECHNIQUE: After informed consent, patient was taken to the operating room where she was placed under general endotracheal anesthesia. Preoperative application included therapeutic administration of Zosyn and application of sequential calf compression boots and mechanical bowel prep. Her abdomen was prepared with ChloraPrep solution and draped in the usual sterile fashion. Orogastric and Hernandez catheters were inserted. A small infraumbilical midline incision was made approximately 2 cm in length and carried down through the layers of the abdominal wall until the peritoneum was identified and entered sharply. A 10 mm Lashay cannula was inserted and pneumoperitoneum achieved with carbon dioxide. A 5 mm 30-degree [place] telescope was inserted. Laparoscopy was carried out with findings noted above. Two additional 5 mm ports were placed in the lower midline and left lower quadrant and a third in the subxiphoid midline. The omentum was divided with the LigaSure device, leaving that portion that was adherent to the cecal mass in situ. The laparoscopy was carried out with findings as noted above. After mobilizing the right colon laparoscopically using the LigaSure device. It was evident that this lesion most likely represented a malignant neoplasm of the cecum and decision was made to perform a hand-assisted laparoscopic right colectomy. The Lashay cannula was removed. Pneumoperitoneum was allowed to escape and the infraumbilical incision was extended above and below the umbilicus for a total length of 6 cm. Hemostasis achieved with electrocautery. A GelPort was inserted. Pneumoperitoneum was reestablished and then using a hand-assisted laparoscopic technique, the right colon was fully mobilized using the LigaSure and blunt dissection. Adhesions were present between the terminal ileum and right pelvic sidewall, which required lysis of adhesions sharply using laparoscopic scissors. Care was taken to avoid injury to the right ureter. This allowed the right colon and terminal ileum be fully mobilized to the midline where the right colon was then able to be exteriorized through the GelPort sleeve and an extracorporeal resection and anastomosis was then performed. Points of bowel division were chosen in the right transverse colon and the terminal ileum, approximately 6 cm proximal to the ileocecal valve where the bowel was mobilized circumferentially at both points and ligated and divided with the 75 mm AZAEL equivalent stapling device. The mesentery was then ligated and divided at its base using the LigaSure and 0 Vicryl ties for the ileocolic vessels. The right colon, appendix and mesentery were then sent for pathologic evaluation. A primary anastomosis was then performed using the AZAEL stapler, creating a functional end-to-end anastomosis by lining up the 2 divided ends of the bowel, approximating the antimesenteric borders of both with 3-0 silk sutures creating openings into the lumen of both limbs adjacent to the staple line and using a third firing of the stapler to create a common channel, which was seen to be hemostatic. Finally, a fourth firing of the stapler was used to resect the prior staple lines and the common defect. The resulting anastomosis was seen to be patent, watertight and viable. After hemostasis was assured, the anastomosis was returned to the peritoneal cavity. Pneumoperitoneum was reestablished. Attention was turned to performing the liver biopsy on the visible smaller lesion in the anterior surface of the right lobe. This was performed using laparoscopic scissors. The tissue was sent for pathologic evaluation. Hemostasis was achieved with electrocautery. The abdominal cavity was copiously irrigated with saline solution, following which instruments and cannulas were removed under direct vision. Pneumoperitoneum was allowed to escape and the incisions were closed in layers using continuous 0 PDS to reapproximate the GelPort site fascia, followed by 3-0 Vicryl for subcutaneous tissues, followed by 4-0 Monocryl for all the incisions. Next, 20 mL of a 50:50 combination of 1% lidocaine plain and 0.5% Marcaine with epinephrine was infiltrated into the incisions to assist in postoperative analgesia. Dermabond was applied. General anesthesia was terminated and patient was transferred to the recovery room in satisfactory condition. Sponge and needle counts were correct x2. No drains were used. cc: Dr. Dubose, TD: 01/17/2019 18:03 MTDD
--- NOTE | 2019-01-17 19:50 | ANESTHESIA PROCEDURE NOTE ---
Diagnosis: S/P right colectomy Procedure: Bilateral Transverse Abdominis plane blocks Consent for Procedure(s) Verified and Reviewed: Yes Height and Weight: Height 5 ft 2 in Weight (kg) 58 kg Body Mass Index 23.3 Vital Signs: Temp Pulse Resp BP Pulse Ox 36.8 C 77 16 125/65 95 01/17/19 18:55 01/17/19 19:15 01/17/19 19:15 01/17/19 18:55 01/17/19 18:55 Allergies morphine Adverse Reaction (Verified 01/16/19 19:24) Itching ASA classification: 2-Mild systemic disease Is this case an emergency?: No Anes. Monitoring and Equipment: Non-invasive BP, Pulse oximetery Anes. Procedure Start Time: 17:26 Anes. Procedure Stop Time: 17:40 Procedure Notes: With the patient under general anesthesia, the patient's right and left abdominal wall was prepped with chloroprep. Using ultrasound, the External Oblique muscle (EOM), internal oblique muscle(IOM) and the transversus abdomini ns (HARRINGTON) muscles were identified on the left side. A 22G stimiplex blunted needle was advanced under ultrasound guidance to the fascial plane between the HARRINGTON and IOM. A total of 30ml of 0.16% Ropivicaine with 2mg decadron was injected with adequate spread noted. On the right side, the EOM, IOM and HARR[place] were identified under ultrasound and a 22G stimiplex blunted needle was advanced under ultrasound guidance to the fascial plane between the IOM and HARR[place]. A total of 30ml of 0.16% Ropivicaine with 2mg decadron was injected with adequate spread noted. Patient tolerated the procedure well and was awaken from anesthesia without incident. Full evaluation is pending.
[2019-01-17] MEDS: ACETAMINOPHEN 1,000 MG/100 ML 100 ML IV SCH (20:04)
[2019-01-17] MEDS ORDERED: diphenhydrAMINE INJ 50 MG/ML VIAL IVP PRN (20:20)
[2019-01-18] MEDS: KETOROLAC 15 MG/ML VIAL IVP SCH ×4 (01:10→18:53)
[2019-01-18] MEDS: PIPERACILLIN/TAZOBACTAM 4.5 GM in SODIUM CHLORIDE 0.9% MINIBAG 100 ML IV SCH ×2 (01:18→06:14)
[2019-01-18] MEDS: SODIUM CHLORIDE FLUSH 0.9% 10 ML SYRINGE IVP SCH ×3 (01:24→18:14)
[2019-01-18] MEDS: ACETAMINOPHEN 1,000 MG/100 ML 100 ML IV SCH (01:55)
[2019-01-18 05:47] LABS: BASOPHILS % (AUTO) 0.2 %; EOSINOPHILS # (AUTO) 0.1 10^3/uL (0.0-0.7); EOSINOPHILS % (AUTO) 0.6 %; HGB - HEMOGLOBIN 9.7 g/dL (12.0-16.0); LYMPHOCYTES # (AUTO) 0.5 10^3/uL (1.5-3.5); LYMPHOCYTES % (AUTO) 3.4 %; MEAN CORPUSCULAR HGB CONC 30.2 g/dL (32.0-36.0); MEAN CORPUSCULAR VOLUME 76.2 fL (81.0-99.0); MEAN PLATELET VOLUME 9.7 fL (7.9-10.8); MONOCYTES # (AUTO) 0.5 10^3/uL (0.0-1.0); MONOCYTES % (AUTO) 3.7 %; NEUTROPHILS # (AUTO) 12.3 10^3/uL (1.5-6.6); NEUTROPHILS % (AUTO) 91.7 %; PLT - PLATELET COUNT 315 10^3/uL (130-450); RED BLOOD COUNT 4.21 10^6/uL (4.20-5.40); RED CELL DISTRIBUTION WIDTH 19.5 % (12.0-15.0); WHITE BLOOD COUNT 13.4 x10^3/uL (4.8-10.8)
[2019-01-18 05:55] LABS: ALBUMIN 3.2 g/dL (3.2-5.5); BILIRUBIN,TOTAL 0.5 mg/dL (0.2-1.0); CALCIUM 8.2 mg/dL (8.5-10.3); CREATININE 0.7 mg/dL (0.4-1.0); MAGNESIUM 2.1 mg/dL (1.7-2.8); PHOSPHORUS 2.9 mg/dL (2.5-4.6); TOTAL PROTEIN 6.4 g/dL (6.7-8.2)
[2019-01-18] MEDS: PANTOPRAZOLE 40 MG VIAL IVP SCH (06:05)
[2019-01-18] MEDS: SODIUM CHLORIDE FLUSH 0.9% 10 ML SYRINGE IVP PRN ×2 (06:05→18:54)
[2019-01-18] MEDS ORDERED: BENZOCAINE/MENTHOL LOZENGE MM PRN (07:07)
[2019-01-18] MEDS: FORMOTEROL FUMARATE NEB 20 MCG/2 ML INH SCH ×2 (07:17→17:52)
[2019-01-18] MEDS: BUDESONIDE 0.5 MG/2 ML NEB INH SCH ×2 (07:17→17:52)
[2019-01-18] MEDS ORDERED: oxyCODONE 5 MG TABLET PO PRN (08:06)
--- NOTE | 2019-01-18 08:09 | PROVIDER PROGRESS NOTE ---
Subjective - General Admit Date: 01/17/19 Procedure Date: 01/17/19 Post Op Days: 1 Procedure Performed: laparoscopic right colectomy and liver biopsy - Review of Systems Wound/Incisions: positive: Healing well, No drainage General: positive: No symptoms Pulmonary: positive: No symptoms Cardiovascular: positive: No symptoms Gastrointestinal: positive: Abdominal pain (well controlled with analgesics at present). negative: Nausea, Vomiting, Difficulty swallowing, Flatus Genitourinary: positive: No symptoms Objective - Patient Data Reviewed Vital Signs: Yes Vital Signs: Vital Signs x48h Temp Pulse Pulse Resp BP Pulse Ox 01/18/19 07:45 36.7 C 70 18 116/68 96 01/18/19 07:24 77 14 01/18/19 06:50 36.6 C 64 16 95 01/18/19 04:45 36.4 C L 61 16 108/52 L 96 Weight: Weight 01/16/19 01/17/19 01/18/19 23:59 23:59 23:59 Weight (kg) 59.421 kg 58 kg Intake & Output: Intake and Output Totals x24h 01/16/19 01/17/19 01/18/19 23:59 23:59 23:59 Intake Total 2813.333 1320 Output Total 1600 435 Balance 1213.333 885 - Lab Results Lab Results: 01/18/19 05:00 01/18/19 05:00 Other Lab Results: Lab Results x24hrs 01/18/19 01/18/19 01/18/19 Range/Units 05:00 05:00 05:00 WBC 13.4 H (4.8-10.8) x10^3/uL RBC 4.21 (4.20-5.40) 10^6/uL Hgb 9.7 L (12.0-16.0) g/dL Hct 32.1 L (37.0-47.0) % MCV 76.2 L (81.0-99.0) fL MCH 23.0 L (27.0-31.0) pg MCHC 30.2 L (32.0-36.0) g/dL RDW 19.5 H (12.0-15.0) % Plt Count 315 (130-450) 10^3/uL MPV 9.7 (7.9-10.8) fL Neut # (Auto) 12.3 H (1.5-6.6) 10^3/uL Lymph # (Auto) 0.5 L (1.5-3.5) 10^3/uL [place] # (Auto) 0.5 (0.0-1.0) 10^3/uL Eos # (Auto) 0.1 (0.0-0.7) 10^3/uL Baso # (Auto) 0.0 (0.0-0.1) 10^3/uL Absolute Nucleated RBC 0.00 x10^3/uL Nucleated RBC % 0.0 /100WBC Sodium 141 (135-145) mmol/L Potassium 3.8 (3.5-5.0) mmol/L Chloride 108 (101-111) mmol/L Carbon Dioxide 24 (21-32) mmol/L Anion Gap 9.0 (6-13) BUN 11 (6-20) mg/dL Creatinine 0.7 (0.4-1.0) mg/dL Estimated GFR (MDRD) 83 L (>89) Glucose 156 H (70-100) mg/dL Calcium 8.2 L (8.5-10.3) mg/dL Phosphorus 2.9 (2.5-4.6) mg/dL Magnesium 2.1 (1.7-2.8) mg/dL Total Bilirubin 0.5 (0.2-1.0) mg/dL AST 15 (10-42) IU/L ALT 17 (10-60) IU/L Alkaline Phosphatase 82 (42-121) IU/L Total Protein 6.4 L (6.7-8.2) g/dL Albumin 3.2 (3.2-5.5) g/dL Globulin 3.2 (2.1-4.2) g/dL Albumin/Globulin Ratio 1.0 (1.0-2.2) TSH 0.46 (0.34-5.60) uIU/mL - Current Medications Current Medications: Current Medications Generic Name Dose Route Start Last Admin Trade Name Freq PRN Reason Stop Dose Admin Albuterol 2.5 mg 01/17/19 15:50 01/17/19 19:21 INH 2.5 mg RTQ4H PRN Administration Wheezing Budesonide 0.5 mg 01/17/19 19:00 01/18/19 07:17 Pulmicort INH 0.5 mg RTBID TUCKER Administration Diphenhydramine HCl 25 mg 01/17/19 20:20 01/17/19 20:42 Benadryl Inj IVP 25 mg Q6H PRN Administration Allergy Symptoms Formoterol Fumarate 20 mcg 01/17/19 19:00 01/18/19 07:17 Perforomist INH 20 mcg RTBID TUCKER Administration Hydromorphone HCl 0.5 mg 01/17/19 18:08 01/17/19 20:43 Dilaudid Inj Syringe IVP 0.5 mg Q2HR PRN Administration PAIN Ketorolac Tromethamine 15 mg 01/17/19 19:00 01/18/19 06:04 Toradol Inj (15mg) IVP 01/22/19 18:59 15 mg Q6H TUCKER Administration Ondansetron HCl 4 mg 01/17/19 00:25 01/17/19 12:52 Zofran Inj IVP 4 mg Q6HR PRN Administration Nausea / Vomiting Pantoprazole Sodium 40 mg 01/17/19 07:00 01/18/19 06:05 Protonix IVP 40 mg QDAC TUCKER Administration Sodium Chloride 10 ml 01/18/19 01:00 01/18/19 01:24 Normal Saline Flush 0.9% IVP 10 ml 0100,0900,1700 TUCKER Administration Sodium Chloride 10 ml 01/17/19 18:01 01/18/19 06:05 Normal Saline Flush 0.9% IVP 10 ml PRN PRN Administration NEEDED PER PROVIDER ORDERS - Physical Exam Wound/Incisions: positive: Healing well, No drainage General Appearance: positive: No acute distress, Alert Eyes Bilateral: positive: No scleral icterus ENT: positive: ENT inspection nml, Pharynx nml, No signs of dehydration Neck: positive: No JVD Respiratory: positive: Chest non-tender, No respiratory distress, Breath sounds nml. negative: Wheezes, Rales, Rhonchi Cardiovascular: positive: Regular rate & rhythm, No murmur, No gallop Abdomen: positive: Nml bowel sounds, No distention, Tenderness (minimal incisional tenderness) Skin: positive: Color nml, No rash, Warm, Dry. negative: Cyanosis Extremities: positive: No pedal edema. negative: Calf tenderness Neurologic/Psychiatric: positive: Oriented x3 ABX Reporting Has patient been on IV antibiotics over the past 48 hours?: No Impression/Plan - Problem List Problem List: PO Day #1 s/p right colectomy and liver biopsy for cecal mass; doing well. Plan: d/c antibiotics, d/c IVF, increase activity and diet as tolerated; po meds; home soon if continues to improve. Discussed the likely dx of colon cancer with patient, with further discussion pending receipt of pathology report. Pt appeared to accept the diagnosis as well as could be expected.
[2019-01-18] MEDS: ACETAMINOPHEN 325 MG TABLET PO SCH ×3 (08:56→18:51)
[2019-01-18] MEDS: ENOXAPARIN 40 MG/0.4 ML SYRINGE SUBQ SCH (08:57)
--- NOTE | 2019-01-18 15:22 | PROVIDER PROGRESS NOTE ---
Subjective - Prog Note Date Prog Note Date: 01/18/19 Prog Note Time: 15:18 - Subjective Pt reports feeling: Improved Subjective: Mirna complains of mild soreness in her RUQ which comes and goes. She states she is afraid to cough with her surgical sites, and denies any new symptoms. No nausea, vomiting, dizziness, chest pain, shortness of breath or rashes. Current Medications - Current Medications Current Medications: Active Medications: Acetaminophen (Tylenol) 650 mg PO Q6HR TUCKER Albuterol 2.5 mg INH RTQ4H PRN Budesonide (Pulmicort) 0.5 mg INH RTBID TUCKER Diphenhydramine HCl (Benadryl Inj) 25 mg IVP Q6H PRN Enoxaparin Sodium (Lovenox) 40 mg SUBQ DAILY TUCKER Formoterol Fumarate (Perforomist) 20 mcg INH RTBID TUCKER Hydromorphone HCl (Dilaudid Inj Syringe) 0.5 mg IVP Q2HR PRN Ketorolac Tromethamine (Toradol Inj (15mg) 15 mg IVP Q6H TUCKER Ondansetron HCl (Zofran Inj) 4 mg IVP Q6HR PRN Oxycodone HCl (Roxicodone) 2.5 mg PO Q6H PRN Pantoprazole Sodium (Protonix) 40 mg IVP QDAC TUCKER Throat Lozenges (Cepacol) 1 lozenge MM Q2HR PRN HOME meds: Albuterol Sulfate [Proair Hfa Inhaler] 1 - 2 puffs INH PRN PRN 01/16/19 Fluticasone Propion/Salmeterol [Wixela 100-50 Inhub] 1 puffs INH DAILY 01/16/19 Meloxicam 7.5 mg PO DAILY 01/16/19 Saccharomyces Boulardii [Florastor] 1 cap PO DAILY 01/16/19 raNITIdine [Zantac] 150 mg PO BID 01/16/19 Alendronate Sodium 70 mg PO Q7D 01/17/19 Cetirizine [ZyrTEC] 10 mg PO DAILY 01/17/19 Ipratropium/Albuterol Sulfate [Iprat-Albut 0.5-3(2.5) mg/3 ml] 3 ml IH Q6H PRN 01/17/19 Objective - Vital Signs/Intake & Output Reviewed Vital Signs: Yes Vital Signs: Vital Signs x48h Temp Pulse Pulse Resp BP Pulse Ox 01/18/19 14:30 37.0 C 88 20 117/71 100 01/18/19 07:45 36.7 C 70 18 116/68 96 01/18/19 07:24 77 14 Intake & Output: Intake & Output 01/15/19 01/16/19 01/17/19 01/18/19 23:59 23:59 23:59 23:59 Intake Total 2813.333 1560 Output Total 1600 735 Balance 1213.333 825 - Objective General Appearance: positive: No acute distress Eyes Bilateral: positive: PERRL, No lid inflammation ENT: positive: Pharynx nml, No signs of dehydration Neck: positive: Thyroid nml, No JVD, Trachea midline Respiratory: positive: Chest non-tender, No respiratory distress, Breath sounds nml, Other (diminished bilaterally) Cardiovascular: positive: Regular rate & rhythm, No gallop, Systolic murmur, Decreased pulse(s) Peripheral Pulses: 1+ Radial (R), 1+ Radial (L) Abdomen: positive: No organomegaly, Tenderness (all quadrants), Guarding, Abnml bowel sounds, Other (rounded, soft) Back: positive: Nml inspection Skin: positive: Color nml, No rash, Warm, Dry, Other (surgical sites are open to air, no evidence of infection) Extremities: positive: Non-tender, Full ROM, Pedal edema (dependent, non-pitting to BLEs) Neurologic/Psychiatric: positive: Oriented x3, CN's nml (2-12), Motor nml, Sensation nml, Weakness, Sensory loss, Depressed mood/affect, Other (easily tearful) Reflexes: Bicep (R): 3+, Bicep (L): 3+ - Lab Results Fish Bones: 01/18/19 05:00 01/18/19 05:00 Other Labs: Lab Results x24hrs 01/18/19 01/18/19 01/18/19 Range/Units 05:00 05:00 05:00 WBC 13.4 H (4.8-10.8) x10^3/uL RBC 4.21 (4.20-5.40) 10^6/uL Hgb 9.7 L (12.0-16.0) g/dL Hct 32.1 L (37.0-47.0) % MCV 76.2 L (81.0-99.0) fL MCH 23.0 L (27.0-31.0) pg MCHC 30.2 L (32.0-36.0) g/dL RDW 19.5 H (12.0-15.0) % Plt Count 315 (130-450) 10^3/uL MPV 9.7 (7.9-10.8) fL Neut # (Auto) 12.3 H (1.5-6.6) 10^3/uL Lymph # (Auto) 0.5 L (1.5-3.5) 10^3/uL [place] # (Auto) 0.5 (0.0-1.0) 10^3/uL Eos # (Auto) 0.1 (0.0-0.7) 10^3/uL Baso # (Auto) 0.0 (0.0-0.1) 10^3/uL Absolute Nucleated RBC 0.00 x10^3/uL Nucleated RBC % 0.0 /100WBC Sodium 141 (135-145) mmol/L Potassium 3.8 (3.5-5.0) mmol/L Chloride 108 (101-111) mmol/L Carbon Dioxide 24 (21-32) mmol/L Anion Gap 9.0 (6-13) BUN 11 (6-20) mg/dL Creatinine 0.7 (0.4-1.0) mg/dL Estimated GFR (MDRD) 83 L (>89) Glucose 156 H (70-100) mg/dL Calcium 8.2 L (8.5-10.3) mg/dL Phosphorus 2.9 (2.5-4.6) mg/dL Magnesium 2.1 (1.7-2.8) mg/dL Total Bilirubin 0.5 (0.2-1.0) mg/dL AST 15 (10-42) IU/L ALT 17 (10-60) IU/L Alkaline Phosphatase 82 (42-121) IU/L Total Protein 6.4 L (6.7-8.2) g/dL Albumin 3.2 (3.2-5.5) g/dL Globulin 3.2 (2.1-4.2) g/dL Albumin/Globulin Ratio 1.0 (1.0-2.2) TSH 0.46 (0.34-5.60) uIU/mL ABX Reporting Has patient been on IV antibiotics over the past 48 hours?: Yes Sepsis Event Note (H) - Evaluation Current Stage of Sepsis: Resolved Assessment/Plan - Problem List (1) Sepsis Impression: - Now resolved since surgical intervention - Secondary to perforated appendicitis with abscess - Presented with fevers, leukocytosis w/ left shift, and tachycardia - No hypotension or lactic acidosis - Status post Zosyn IV, - IV hydration - Blood cultures x2 are NGTD collected on 01/17 Plan: Continue to monitor for post-op complications, routine labs Cecum mass -Post op day #1 after a laparoscopic right colectomy and liver biopsy performed by Dr. Sharron Mcintyre -Per Dr. Reaves note from today: Discussed the likely dx of colon cancer with patient, with further discussion pending receipt of pathology report. Pt appeared to accept the diagnosis as well as could be expected Plan: Await pathology report, support as needed Status post right colectomy -During surgery a cecal mass was discovered which was highly suspicious of cancer -The mass was resected, now post op day #1 Plan: Continue usual post-op care Appendicitis with abscess - CT of the abdomen/pelvis showed distal appendix is dilated and fluid-filled. At the base of the appendix/cecum, there is a 5.5 x 5.7 x 5.3 cm complex cystic and solid mass favored represent abscess/phlegmon in the setting of perforated appendicitis, however, perforated cecal mass not excluded. No free intraperitoneal air - Status post Zosyn IV - Dilaudid PRN pain, Zofran PRN, IV hydration - Now status post appendectomy, status post right colectomy, and liver biopsy is pending Plan: Continue post op cares, await pathology report Liver lesions - CT of abdomen/pelvis shows within the peripheral aspect of the right lobe of the liver, there are 2 hypoenhancing masses, one measuring 2.8 cm and the other measuring 1.7 cm. Findings may represent metastatic disease - IV antibiotics Plan: Liver biopsy is pending which obtained during surgery Asthma - No recent exacerbations, also with a history of a pulmonary nodule - Is prescribed Fluticasone/Salmeterol at home Plan: Continue Duo-nebs PRN GERD (gastroesophageal reflux disease) - Prescribed ranitidine at home. - Protonix IV was started upon admission Plan: Continue post-op care, continue IV protonix or as per surgery
[2019-01-18] MEDS ORDERED: SIMETHICONE 40 MG/0.6 ML 30 ML BOTTLE PO PRN (20:23)
[2019-01-18] MEDS ORDERED: SIMETHICONE CHEW 80 MG TABLET PO PRN (21:05)
[2019-01-19] MEDS: ACETAMINOPHEN 325 MG TABLET PO SCH ×2 (00:47→06:55)
[2019-01-19] MEDS: KETOROLAC 15 MG/ML VIAL IVP SCH ×2 (00:48→06:55)
[2019-01-19] MEDS: SODIUM CHLORIDE FLUSH 0.9% 10 ML SYRINGE IVP SCH (00:49)
[2019-01-19 05:08] LABS: BASOPHILS % (AUTO) 0.3 %; EOSINOPHILS # (AUTO) 0.2 10^3/uL (0.0-0.7); EOSINOPHILS % (AUTO) 1.5 %; HGB - HEMOGLOBIN 8.4 g/dL (12.0-16.0); LYMPHOCYTES # (AUTO) 2.3 10^3/uL (1.5-3.5); LYMPHOCYTES % (AUTO) 19.8 %; MEAN CORPUSCULAR HEMOGLOBIN 22.5 pg (27.0-31.0); MEAN CORPUSCULAR VOLUME 77.5 fL (81.0-99.0); MEAN PLATELET VOLUME 9.6 fL (7.9-10.8); MONOCYTES # (AUTO) 0.7 10^3/uL (0.0-1.0); MONOCYTES % (AUTO) 5.7 %; NEUTROPHILS # (AUTO) 8.4 10^3/uL (1.5-6.6); NEUTROPHILS % (AUTO) 72.4 %; PLT - PLATELET COUNT 289 10^3/uL (130-450); RED BLOOD COUNT 3.74 10^6/uL (4.20-5.40); RED CELL DISTRIBUTION WIDTH 19.7 % (12.0-15.0); WHITE BLOOD COUNT 11.5 x10^3/uL (4.8-10.8)
[2019-01-19 05:17] LABS: MAGNESIUM 2.1 mg/dL (1.7-2.8); PHOSPHORUS 1.7 mg/dL (2.5-4.6)
[2019-01-19] MEDS: PANTOPRAZOLE 40 MG VIAL IVP SCH (06:55)
[2019-01-19 06:57] VITALS: BP 119/58
[2019-01-19] MEDS: BUDESONIDE 0.5 MG/2 ML NEB INH SCH (07:16)
[2019-01-19] MEDS: FORMOTEROL FUMARATE NEB 20 MCG/2 ML INH SCH (07:16)
--- NOTE | 2019-01-19 07:54 | PROVIDER PROGRESS NOTE ---
Subjective - General Admit Date: 01/17/19 Procedure Date: 01/17/19 Post Op Days: 2 Procedure Performed: laparoscopic right colectomy and liver biopsy - Review of Systems Wound/Incisions: positive: Healing well, No drainage General: positive: No symptoms Pulmonary: positive: No symptoms Cardiovascular: positive: No symptoms Gastrointestinal: positive: Abdominal pain (well controlled with non narcotic analgesics at present), Flatus (2 liquid bms overnight), Other (c/o discomfort in right flank, intermittent, mild). negative: Nausea, Vomiting, Difficulty swallowing Genitourinary: positive: No symptoms Objective - Patient Data Reviewed Vital Signs: Yes Vital Signs: Vital Signs x48h Temp Pulse Pulse Resp BP Pulse Ox 01/19/19 07:19 78 18 01/19/19 06:00 36.9 C 68 16 119/58 L 97 01/19/19 01:15 36.8 C 76 22 130/63 98 Weight: Weight 01/17/19 01/18/19 01/19/19 23:59 23:59 23:59 Weight (kg) 58 kg Intake & Output: Intake and Output Totals x24h 01/17/19 01/18/19 01/19/19 23:59 23:59 23:59 Intake Total 2813.333 2210 200 Output Total 1600 1335 500 Balance 1213.333 875 -300 tolerating full liquid diet well; voiding well adequate amounts of urine - Lab Results Lab Results: 01/19/19 04:45 01/18/19 05:00 Other Lab Results: Lab Results x24hrs 01/19/19 01/19/19 Range/Units 04:45 04:45 WBC 11.5 H (4.8-10.8) x10^3/uL RBC 3.74 L (4.20-5.40) 10^6/uL Hgb 8.4 L (12.0-16.0) g/dL Hct 29.0 L (37.0-47.0) % MCV 77.5 L (81.0-99.0) fL MCH 22.5 L (27.0-31.0) pg MCHC 29.0 L (32.0-36.0) g/dL RDW 19.7 H (12.0-15.0) % Plt Count 289 (130-450) 10^3/uL MPV 9.6 (7.9-10.8) fL Neut # (Auto) 8.4 H (1.5-6.6) 10^3/uL Lymph # (Auto) 2.3 (1.5-3.5) 10^3/uL [place] # (Auto) 0.7 (0.0-1.0) 10^3/uL Eos # (Auto) 0.2 (0.0-0.7) 10^3/uL Baso # (Auto) 0.0 (0.0-0.1) 10^3/uL Absolute Nucleated RBC 0.00 x10^3/uL Nucleated RBC % 0.0 /100WBC Phosphorus 1.7 L (2.5-4.6) mg/dL Magnesium 2.1 (1.7-2.8) mg/dL - Current Medications Current Medications: Current Medications Generic Name Dose Route Start Last Admin Trade Name Freq PRN Reason Stop Dose Admin Acetaminophen 650 mg 01/18/19 09:00 01/19/19 06:55 Tylenol PO 650 mg Q6HR TUCKER Administration Albuterol 2.5 mg 01/17/19 15:50 01/17/19 19:21 INH 2.5 mg RTQ4H PRN Administration Wheezing Budesonide 0.5 mg 01/17/19 19:00 01/19/19 07:16 Pulmicort INH 0.5 mg RTBID TUCKER Administration Diphenhydramine HCl 25 mg 01/17/19 20:20 01/17/19 20:42 Benadryl Inj IVP 25 mg Q6H PRN Administration Allergy Symptoms Enoxaparin Sodium 40 mg 01/18/19 09:00 01/18/19 08:57 Lovenox SUBQ 40 mg DAILY TUCKER Administration Formoterol Fumarate 20 mcg 01/17/19 19:00 01/19/19 07:16 Perforomist INH 20 mcg RTBID TUCKER Administration Hydromorphone HCl 0.5 mg 01/17/19 18:08 01/17/19 20:43 Dilaudid Inj Syringe IVP 0.5 mg Q2HR PRN Administration PAIN Ketorolac Tromethamine 15 mg 01/17/19 19:00 01/19/19 06:55 Toradol Inj (15mg) IVP 01/22/19 18:59 15 mg Q6H TUCKER Administration Ondansetron HCl 4 mg 01/17/19 00:25 01/17/19 12:52 Zofran Inj IVP 4 mg Q6HR PRN Administration Nausea / Vomiting Pantoprazole Sodium 40 mg 01/17/19 07:00 01/19/19 06:55 Protonix IVP 40 mg QDAC TUCKER Administration Simethicone 80 mg 01/18/19 21:05 01/18/19 21:28 Mylicon PO 80 mg 0900,1300,1800,2100 PRN Administration Heartburn Sodium Chloride 10 ml 01/18/19 01:00 01/19/19 00:49 Normal Saline Flush 0.9% IVP 10 ml 0100,0900,1700 TUCKER Administration Sodium Chloride 10 ml 01/17/19 18:01 01/18/19 18:54 Normal Saline Flush 0.9% IVP 10 ml PRN PRN Administration NEEDED PER PROVIDER ORDERS Throat Lozenges 1 lozenge 01/18/19 07:07 01/18/19 08:57 Cepacol MM 1 lozenge Q2HR PRN Administration Throat pain - Physical Exam Wound/Incisions: positive: Healing well, No drainage General Appearance: positive: No acute distress, Alert Eyes Bilateral: positive: No scleral icterus ENT: positive: ENT inspection nml, Pharynx nml, No signs of dehydration Neck: positive: No JVD Respiratory: positive: Chest non-tender, No respiratory distress, Breath sounds nml. negative: Wheezes, Rales, Rhonchi Cardiovascular: positive: Regular rate & rhythm, No murmur, No gallop Abdomen: positive: Nml bowel sounds, No distention, Tenderness (minimal incisional), Other (incisions healing well) Skin: positive: Color nml, No rash, Warm, Dry. negative: Cyanosis Extremities: positive: Non-tender. negative: Calf tenderness Neurologic/Psychiatric: positive: Oriented x3 ABX Reporting Has patient been on IV antibiotics over the past 48 hours?: No Impression/Plan - Problem List Problem List: PO Day 2 s/p lap right colectomy and liver bx for cecal mass and liver lesions likely carcinoma with mets to liver; path pending; doing well. Rec: ok for d/c from surgical standpoint, non narcotic analgesics, regular diet except no raw vegetables or nuts; outpt f/u my office, Dr. Dubose, and medical oncology consultation.
--- NOTE | 2019-01-19 08:43 | Discharge Plan ---
Discharge Plan Problem Reviewed?: Yes Disposition: Home, Self Care Condition: Good Prescriptions: Acetaminophen [Tylenol] 650 mg PO Q6HR #30 tablet Diet: Regular Activity Restrictions: Activity as Tolerated Shower Restrictions: No Instruction Topics: Surgery Anesthesia After, Abdomen Surg Dc Health Concerns: Cecum mass Post-operative right colectomy (removal of bowel tumor) Appendicitis Liver lesions Asthma GERD Plan of Treatment: Follow up with Dr. Mcintyre outpatient to discuss biopsy results Care Goals: Prevent infection Prevent hospital stays Assessment: You are medically stable for discharge since you are eating and moving your bowels Please establish a regular Oncology, which will need to be referred by your Primary care provider No Smoking: If you smoke, Please STOP! Call for help. Follow-up with: Joaquina Lockett ARNP, MAINTENANCE PAINTER APPRENTICE-C [Primary Care Provider] -
--- NOTE | 2019-01-19 09:25 | DISCHARGE SUMMARY ---
"Discharge Summary Admit Date: 01/17/19 Discharge Date: 01/19/19 Discharging Provider: KELLY Carr Primary Care Provider: Bharathi Dubose Code Status: Attempt Resuscitation Condition at Discharge: Good Discharge Disposition: 01 Home, Self Care - DIAGNOSES Admission Diagnoses: Sepsis Appendicitis with abscess Pre-op evaluation Liver masses Asthma GERD (gastroesophageal reflux disease) Discharge Diagnoses with Status of Each Condition: Sepsis- Resolved Cecum mass- new on this admission, oncology consult should be made by PCP Status post laparoscopic colectomy-Performed by Dr. Bladimir Mcintyre, stable, no signs of post-op complications Appendicitis with abscess- Appendix removed laproscopically, stable Liver masses- liver biopsies are pending, stable Asthma- resume home inhalers GERD (gastroesophageal reflux disease)- stable - HPI History of Present Illness: HPI per Dr. Mooney: Mirna Jo is a 68 year old female with history of junctional tachycardia, GERD, Asthma who presents from home complaining of abdominal pain on and off for the past week. The pain became more prominent today and she spiked a temperature of 100.5 at home and so she decided to seek medical attention. She denies nausea, vomiting, and chills. She also denies chest pain and dyspnea. She is able to walk up a flight of stairs without symptoms. She reports no prior history of MA or heart failure. She does have a history of junctional tachycardia that was diagnosed in 2007. She was treated with flecainide at that time. She reports she did well with the medication but she stopped taking it due to issues with her insurance and the cost of the medication. She has been off off it for >5 years now. She no longer sees a vegetable picker. She reports palpitations at times but for the most part, she feels well. In the ER, she was febrile, tachycardic, and slightly hypertensive. Labs were significant for a white count of 15 with a left shift. CT of the abdomen/pelvis was concerning for perforated appendicitis or cecal mass with an abscess. There were also two hypo-enhancing lesions in the liver concerning for abscess or metastatic disease. Given these findings, she will be admitted for further management. - CONSULTS | PROCEDURES Consultations: General surgery- Dr. Bladimir Mcintyre Procedures: laparoscopic right colectomy and liver biopsy - HOSPITAL COURSE Hospital Course: Sepsis is considered resolved since surgical intervention, a cecum mass was discovered during her laproscopic procedure, which was removed (right colectomy), along with a liver biopsy and an appendectomy, performed by Dr. Bladimir Mcintyre. Dr. Reaves noted: Discussed the likely dx of colon cancer with patient, with further discussion pending receipt of pathology report. Pt appeared to accept the diagnosis as well as could be expected. Pathology reports are still pending and the patient will plan to follow up outpatient to sit down with Dr. Mcintyre for official pathology results. There were no issues with her chronic conditions of asthma or GERD. The patient was medically stable, tolerating meals, moving her bowels and discharged home with her . - ALLERGIES Allergies/Adverse Reactions: Allergies Allergy/AdvReac Type Severity Reaction Status Date / Time morphine AdvReac Itching Verified 01/16/19 19:24 - MEDICATIONS Home Medications: Ambulatory Orders Medication Instructions Recorded Confirmed Albuterol Sulfate [Proair Hfa 1 - 2 puffs INH PRN PRN 01/16/19 01/16/19 Inhaler] Fluticasone Propion/Salmeterol 1 puffs INH DAILY 01/16/19 01/17/19 [Wixela 100-50 Inhub] Meloxicam 7.5 mg PO DAILY 01/16/19 01/17/19 Saccharomyces Boulardii [Florastor] 1 cap PO DAILY 01/16/19 01/16/19 raNITIdine [Zantac] 150 mg PO BID 01/16/19 01/17/19 Alendronate Sodium 70 mg PO Q7D 01/17/19 01/17/19 Cetirizine [ZyrTEC] 10 mg PO DAILY 01/17/19 01/17/19 Ipratropium/Albuterol Sulfate 3 ml IH Q6H PRN 01/17/19 01/17/19 [Iprat-Albut 0.5-3(2.5) mg/3 ml] Acetaminophen [Tylenol] 650 mg PO Q6HR #30 tablet 01/19/19 - PHYSICAL EXAM AT DISCHARGE General Appearance: positive: No acute distress, Alert Eyes Bilateral: positive: PERRL ENT: positive: ENT inspection nml, Pharynx nml, No signs of dehydration Neck: positive: Thyroid nml, No JVD, Trachea midline Respiratory: positive: Chest non-tender, No respiratory distress, Breath sounds nml Cardiovascular: positive: Regular rate & rhythm, No murmur, No gallop Peripheral Pulses: positive: 2+ Abdomen: positive: Tenderness, Guarding, Other (rounded, soft) Back: positive: Nml inspection Skin: positive: Color nml, No rash, Warm, Dry Extremities: positive: Non-tender, Full ROM, Nml appearance, No pedal edema Neurologic/Psychiatric: positive: Oriented x3, CN's nml (2-12), Motor nml, Sensation nml, Mood/affect nml Reflexes: Bicep (R): 3+, Bicep (L): 3+ - LABS Result Diagrams: 01/19/19 04:45 01/18/19 05:00 - DIAGNOSTIC IMAGING Diagnostic Imaging Results: Final report reviewed Diagnostic Imaging Results Comments: EXAM: CT ABDOMEN AND PELVIS EXAM DATE: 01/16/2019 10:23 PM IMPRESSION: 1. The distal appendix is dilated and fluid-filled. At the base of the appendix/cecum, there is a 5.5 x 5.7 x 5.3 cm complex cystic and solid mass favored represent abscess/phlegmon in the setting of perforated appendicitis, however, perforated cecal mass not excluded. No free intraperitoneal air. This mass abuts the dome of the bladder and may be adherent, however, there is no bladder wall thickening. Recommend surgical consultation. 2. Within the peripheral aspect of the right lobe of the liver, there are 2 hypoenhancing masses, one measuring 2.8 cm and the other measuring 1.7 cm. Findings favored to represent hepatic abscesses, however, metastatic disease cannot be completely excluded. 3. There is a 5 mm pulmonary nodule within the right lower lobe. Recommend nonemergent CT chest for further evaluation. 4. Hysterectomy. 5. Other chronic findings detailed above. - SEPSIS Current Stage of Sepsis: Resolved - FOLLOW UP Follow Up: Disposition: Home Prescriptions: Acetaminophen [Tylenol] 650 mg PO Q6HR #30 tablet Health Concerns: Cecum mass Post-operative right colectomy (removal of bowel tumor) Appendicitis Liver lesions Asthma GERD Plan of Treatment: Follow up with Dr. Mcintyre outpatient to discuss biopsy results Care Goals: Prevent infection Prevent hospital stays Assessment: You are medically stable for discharge since you are eating and moving your bowels. Please establish a regular Oncology, which will need to be referred by your Primary care provider - TIME SPENT Time Spent in Discharge (Minutes): 55"
[2019-01-19] MEDS: ENOXAPARIN 40 MG/0.4 ML SYRINGE SUBQ SCH (09:59)
== END 2019-01-19 12:25 | disposition home or self-care (01) | DRG 853 ==
LOC: ED 18:39 → UNDOADMIN 01-17 00:25 → MS3 01-17 00:25 → UNDODISIN 01-19 12:25
PROVIDERS: ADMIT Internal Medicine; ATTEND Nurse Practitioner
PROC: 0FB14ZX Excision of Right Lobe Liver, Percutaneous Endoscopic Approach, Diagnostic (ICD-10-PCS; 2019-01-17)
PROC: 0DTF4ZZ Resection of Right Large Intestine, Percutaneous Endoscopic Approach (ICD-10-PCS; principal; 2019-01-17 14:15)
DX: A41.9 Sepsis, unspecified organism (principal); R00.0 Tachycardia, unspecified; K35.33 Acute appendicitis with perforation, localized peritonitis, and gangrene, with abscess; C18.0 Malignant neoplasm of cecum; C77.2 Secondary and unspecified malignant neoplasm of intra-abdominal lymph nodes; C78.7 Secondary malignant neoplasm of liver and intrahepatic bile duct; I47.1 Supraventricular tachycardia; Q87.89 Other specified congenital malformation syndromes, not elsewhere classified; J45.909 Unspecified asthma, uncomplicated; K21.9 Gastro-esophageal reflux disease without esophagitis; M19.90 Unspecified osteoarthritis, unspecified site; R93.0 Abnormal findings on diagnostic imaging of skull and head, not elsewhere classified; Z79.51 Long term (current) use of inhaled steroids; Z98.1 Arthrodesis status; Z90.710 Acquired absence of both cervix and uterus
CPT/HCPCS: 36415; 74177; 80048; 80053; 81001; 83605; 83690; 83735; 84100; 84443; 85025; 87040; 93005; 94640; 96365; 99284; 99285; A9270; J0131; J1170; J1200; J1650; J3010; J7120; J7626; Q9967; 81003; 87086

== ENCOUNTER 2019-01-24 10:15 | Emergency (ER) | payer MEDICARE, OTHER ==
[2019-01-24 12:15] LABS: BASOPHILS % (AUTO) 0.3 %; EOSINOPHILS # (AUTO) 0.2 10^3/uL (0.0-0.7); HGB - HEMOGLOBIN 9.3 g/dL (12.0-16.0); LYMPHOCYTES # (AUTO) 1.3 10^3/uL (1.5-3.5); LYMPHOCYTES % (AUTO) 12.1 %; MEAN CORPUSCULAR HEMOGLOBIN 22.5 pg (27.0-31.0); MEAN CORPUSCULAR HGB CONC 29.2 g/dL (32.0-36.0); MEAN CORPUSCULAR VOLUME 76.8 fL (81.0-99.0); MEAN PLATELET VOLUME 9.2 fL (7.9-10.8); MONOCYTES # (AUTO) 0.7 10^3/uL (0.0-1.0); MONOCYTES % (AUTO) 6.3 %; NEUTROPHILS # (AUTO) 8.6 10^3/uL (1.5-6.6); NEUTROPHILS % (AUTO) 78.6 %; PLT - PLATELET COUNT 387 10^3/uL (130-450); RED BLOOD COUNT 4.14 10^6/uL (4.20-5.40); RED CELL DISTRIBUTION WIDTH 19.9 % (12.0-15.0)
[2019-01-24 12:29] LABS: ALBUMIN 3.9 g/dL (3.2-5.5); ALBUMIN/GLOBULIN RATIO 1.1 (1.0-2.2); ALKALINE PHOSPHATASE 81 IU/L (42-121); ALT ALANINE AMINOTRANSFERASE 33 IU/L (10-60); AST ASPARTATE AMINOTRANSFERASE 27 IU/L (10-42); BILIRUBIN,TOTAL < 0.2 mg/dL (0.2-1.0); BUN - BLOOD UREA NITROGEN 12 mg/dL (6-20); CALCIUM 9.3 mg/dL (8.5-10.3); CARBON DIOXIDE - CO2 26 mmol/L (21-32); CHLORIDE 104 mmol/L (101-111); CREATININE 0.6 mg/dL (0.4-1.0); GFR - MDRD 99 (>89); GLUCOSE 110 mg/dL (70-100); LIPASE 30 U/L (22-51); SODIUM 142 mmol/L (135-145); TOTAL PROTEIN 7.5 g/dL (6.7-8.2)
--- NOTE | 2019-01-24 12:31 | ED Physician Documentation ---
PD HPI ABD PAIN - Stated complaint Stated Complaint: Side pain - Chief complaint Chief Complaint: Abd Pain - History obtained from History obtained from: Patient - History of Present Illness Timing - onset: Today, Last night Timing - duration: Days (1) Timing - details: Abrupt onset (she is having intermittent sharp pains right flank to RUQ area.), Intermittant Quality: Aching, Sharp, Pain Location: RUQ Radiation: Right flank Improved by: Laying still. No: Eating Worsened by: Moving, Breathing. No: Eating, Palpation Associated symptoms: No: Fever, Nausea, Vomiting, Constipation Similar symptoms before: No diagnosis (has had this at times in the recent past, even prior to surgery. 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 Was not having post op pain much, and not needing pain meds. Ambulatory and not having leg swelling nor pains. 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 Breast biopsy x 2 for benign disease) Neuro: Other - Present Medications Home Medications: Ambulatory Orders Medication Instructions Recorded Confirmed Albuterol Sulfate [Proair Hfa 1 - 2 puffs INH PRN PRN 01/16/19 01/16/19 Inhaler] Fluticasone Propion/Salmeterol 1 puffs INH DAILY 01/16/19 01/17/19 [Wixela 100-50 Inhub] Meloxicam 7.5 mg PO DAILY 01/16/19 01/17/19 Saccharomyces Boulardii [Florastor] 1 cap PO DAILY 01/16/19 01/16/19 raNITIdine [Zantac] 150 mg PO BID 01/16/19 01/17/19 Alendronate Sodium 70 mg PO Q7D 01/17/19 01/17/19 Cetirizine [ZyrTEC] 10 mg PO DAILY 01/17/19 01/17/19 Ipratropium/Albuterol Sulfate 3 ml IH Q6H PRN 01/17/19 01/17/19 [Iprat-Albut 0.5-3(2.5) mg/3 ml] Acetaminophen [Tylenol] 650 mg PO Q6HR #30 tablet 01/19/19 Cephalexin [Keflex] 500 mg PO TID #15 capsule 01/24/19 Tizanidine HCl 4 mg PO TID PRN #25 capsule 01/24/19 Tramadol HCl 50 mg PO Q6H PRN #15 tablet 01/24/19 - Allergies Allergies/Adverse Reactions: Allergies Allergy/AdvReac Type Severity Reaction Status Date / Time morphine AdvReac Itching Verified 01/24/19 10:25 - Social History Does the pt smoke?: No Smoking Status: Never smoker Does the pt drink ETOH?: No Does the pt have substance abuse?: No - Immunizations Immunizations are current?: Yes - POLST Patient has POLST: No PD ED PE NORMAL - Vitals Vital signs reviewed: Yes - General General: Alert and oriented X 3, No acute distress, Well developed/nourished - HEENT HEENT: Moist mucous membranes, Pharynx benign - Neck Neck: Supple, no meningeal sign, No adenopathy - Cardiac Cardiac: RRR, No murmur - Respiratory Respiratory: Clear bilaterally - Abdomen Abdomen: Normal bowel sounds, Soft, Non distended, No organomegaly, Other (some tenderness at surgical incisions but no signs of infection. The right flank and lower ribs have mild local tenderness without redness nor rash. Not tender at GB area per se. No general percussion nor rebound tenderness in abd/RUQ. ) - Derm Derm: Normal color, Warm and dry Results - Vitals Vitals: Vital Signs - 24 hr 09/17/19 09/17/19 09/17/19 10:23 13:18 14:54 Temperature 36.7 C Heart Rate 119 H 94 93 Respiratory 20 18 18 Rate Blood Pressure 133/99 H 118/85 H 124/70 O2 Saturation 100 100 98 Oxygen O2 Source Room air - Labs Labs: Laboratory Tests 01/24/19 01/24/19 01/24/19 12:08 12:08 Unknown WBC 11.0 H RBC 4.14 L Hgb 9.3 L Hct 31.8 L MCV 76.8 L MCH 22.5 L MCHC 29.2 L RDW 19.9 H Plt Count 387 MPV 9.2 Neut # (Auto) 8.6 H Lymph # (Auto) 1.3 L [place] # (Auto) 0.7 Eos # (Auto) 0.2 Baso # (Auto) 0.0 Absolute Nucleated RBC 0.00 Nucleated RBC % 0.0 Sodium 142 Potassium 3.1 L Chloride 104 Carbon Dioxide 26 Anion Gap 12.0 BUN 12 Creatinine 0.6 Estimated GFR (MDRD) 99 Glucose 110 H Calcium 9.3 Total Bilirubin < 0.2 L AST 27 ALT 33 Alkaline Phosphatase 81 Total Protein 7.5 Albumin 3.9 Globulin 3.6 Albumin/Globulin Ratio 1.1 Lipase 30 Urine Color YELLOW Urine Clarity HAZY Urine pH 6.0 Ur Specific Sylva 1.025 Urine Protein NEGATIVE Urine Glucose (UA) NEGATIVE Urine Ketones TRACE Urine Occult Blood SMALL H Urine Nitrite NEGATIVE Urine Bilirubin NEGATIVE Urine Urobilinogen 0.2 (NORMAL) Ur Leukocyte Esterase SMALL H Urine RBC 0-5 Urine WBC 6-10 H Ur Epithelial Cells MOD Transitional H Ur Squamous Epith Cells MANY Squamous H Urine Bacteria Many H Urine Mucus Marked Strands Ur Microscopic Review INDICATED Urine Culture Comments NOT INDICATED - Rads (name of study) CXR Radiology: Prelim report reviewed (no effusion, infiltrates. No free air. ), See rad report PD MEDICAL DECISION MAKING - ED course Complexity details: reviewed old records (prior recent CT scan did not show any nephrolithiasis nor gallstones. ), reviewed results (some indication for possible UTI. The flank pain does not seem concerning on exam for perf/peritoneal signs. CXR without free air still. Lungs okay. ), considered differential (has had this prior to surgery at times. Seems muscular or lowest costal margin. Could be having some local RUQ pain from liver biposy, etc. No apparent residual free air on CXR. Not peritoneal findings. I did not see need for repeat imaging. ), d/w patient Departure - Departure Disposition: 01 Home, Self Care Clinical Impression: Acute right flank pain, Post-operative state UTI (urinary tract infection) Qualifiers: Urinary tract infection type: acute cystitis Hematuria presence: without hematuria Qualified Code(s): N30.00 - Acute cystitis without hematuria Condition: Stable Record reviewed to determine appropriate education?: Yes Follow-Up: Joaquina Lockett ARNP, [employer] [Primary Care Provider] - Prescriptions: Cephalexin [Keflex] 500 mg PO TID #15 capsule Tizanidine HCl 4 mg PO TID PRN #25 capsule PRN Reason: Spasms Tramadol HCl 50 mg PO Q6H PRN #15 tablet PRN Reason: Pain Comments: Your chest x-ray appears normal. Your urine has some white cells and a few bacteria suggestive of a possible infection. We will treat with cephalexin 3 times a day for 5 days at least until the culture results in a few days. Not sure the cause of the pain you had on the right side. Your prior CT scan did not show any kidney stones. Possible you could be getting intermittent pains from some of the cysts in the liver or kidney. Could be muscular pains with spasms. If you have recurrent episodes, you can try some Tylenol along with some tizanidine muscle relaxant and tramadol for pain. Follow-up with your primary care in a few days as planned. Return if worsening symptoms overall. Discharge Date/Time: 01/24/19 14:59
[2019-01-24] MEDS ORDERED: traMADol 50 MG TABLET PO STA (13:07)
[2019-01-24] MEDS ORDERED: NAPROXEN 250 MG TABLET PO STA (13:07)
[2019-01-24] MEDS ORDERED: METHOCARBAMOL 500 MG TABLET PO STA (13:07)
--- NOTE | 2019-01-24 13:57 | XRAY Report ---
Reason: right lateral chest pain Procedure Date: 01/24/2019 Accession Number: [id number] / [id number] Procedure: XR - Chest 2 View X-Ray CPT Code: 88378 FULL RESULT: EXAM: CHEST RADIOGRAPHY EXAM DATE: 01/24/2019 01:35 PM. CLINICAL HISTORY: Right lateral chest pain. COMPARISON: CHEST 2 VIEW 10/17/2018 9:22 AM. TECHNIQUE: 2 views. FINDINGS: Lungs/Pleura: No focal opacities evident. No pleural effusion. No pneumothorax. Mild elevation and eventration of the right hemidiaphragm, as before. Mediastinum: Heart and mediastinal contours are unremarkable. Other: None. IMPRESSION: No acute cardiopulmonary abnormality. RADIA
[2019-01-24 14:19] LABS: BILIRUBIN,URINE NEGATIVE (NEGATIVE); GLUCOSE, URINE (UA) NEGATIVE (NEGATIVE); KETONES,URINE (UA) TRACE mg/dL (NEGATIVE); LEUKOCYTE ESTERASE, URINE SMALL (NEGATIVE); NITRITE,URINE NEGATIVE (NEGATIVE); OCCULT BLOOD,URINE SMALL (NEGATIVE); PROTEIN,URINE NEGATIVE (NEGATIVE); UROBILINOGEN,URINE 0.2 (NORMAL) E.U./dL (NORMAL)
[2019-01-24 14:20] LABS: CLARITY,URINE HAZY (CLEAR)
[2019-01-24] MEDS ORDERED: cephALEXin 250 MG CAPSULE PO STA (14:43)
[2019-01-24 14:55] VITALS: BP 124/70
[2019-01-24 15:00] LABS: BACTERIA,URINE Many /HPF (None Seen); EPITHELIAL CELLS,UR MOD Transitional /HPF (<= Few); MUCUS,URINE Marked Strands; RBC,URINE 0-5 /HPF (0-5); SQUAMOUS EPITHELIAL CELL,UR MANY Squamous (<= Few)
== END 2019-01-24 14:59 | disposition home or self-care (01) ==
LOC: ED 10:15
DX: R10.11 Right upper quadrant pain (principal); Z98.890 Other specified postprocedural states; N30.00 Acute cystitis without hematuria
CPT/HCPCS: 36415; 71046; 80053; 81001; 83690; 85025; 87077; 87086; 87181; 99283; 99284; A9270; 81003

== ENCOUNTER 2019-02-15 13:31 | Outpatient (CLI) | payer MEDICARE, OTHER ==
[2019-02-15 14:20] LABS: CREATININE 0.7 mg/dL (0.4-1.0)
== END 2019-02-15 13:32 | disposition home or self-care (01) ==
LOC: LAB 13:31
PROVIDERS: ATTEND Internal Medicine Gastroenterology
DX: C18.0 Malignant neoplasm of cecum (principal)
CPT/HCPCS: 36415; 82378; 82565

== ENCOUNTER 2019-02-20 08:52 | Day surgery (SDC) | payer MEDICARE, OTHER ==
[~2019-02-20 08:52] MED LIST changes: +CEFAZOLIN SODIUM IN 0.9 % NACL 2 GM/100 ML BAG IV ONE; -GADOBUTROL 7.5 MMOL/7.5 ML VIAL ONE; +LIDOCAINE-MPF 1% 30 ML VIAL ONE; +ceFAZolin 1 GM VIAL ONE
[2019-02-20] MEDS ORDERED: LACTATED RINGERS 1,000 ML IV ONE (09:00)
--- NOTE | 2019-02-20 09:33 | ANESTHESIA ---
Pre-Anesthesia VS, & Labs - Diagnosis Adenocarcenoma of cecum - Procedure Placement of port Vital Signs: Temp Pulse Resp BP Pulse Ox 37 C 85 16 137/85 H 100 02/20/19 09:03 02/20/19 09:03 02/20/19 09:03 02/20/19 09:03 02/20/19 09:03 Height 5 ft 2 in Weight (kg) 57 kg Body Mass Index 22.8 - NPO >8 hours - Is Patient ?: Not Applicable Home Medications and Allergies Home Medications: Ambulatory Orders Cyclobenzaprine HCl 10 mg PO QPM PRN 02/10/19 Ferrous Sulfate 325 mg PO BID 02/10/19 Fluticasone/Salmeterol [Advair 100-50 Diskus] 1 each IH BID 02/10/19 Potassium Chloride 10 meq PO DAILY 02/10/19 Albuterol Sulfate [Proair Hfa Inhaler] 1 - 2 puffs INH PRN PRN 01/16/19 Meloxicam 7.5 mg PO DAILY 01/16/19 Saccharomyces Boulardii [Florastor] 1 cap PO DAILY 01/16/19 raNITIdine [Zantac] 150 mg PO BID 01/16/19 Alendronate Sodium 70 mg PO Q7D 01/17/19 Cetirizine [ZyrTEC] 10 mg PO DAILY 01/17/19 Cyclobenzaprine HCl 10 mg PO QPM PRN 02/10/19 Ferrous Sulfate 325 mg PO BID 02/10/19 Fluticasone/Salmeterol [Advair 100-50 Diskus] 1 each IH BID 02/10/19 Potassium Chloride 10 meq PO DAILY 02/10/19 Allergies/Adverse Reactions: Allergies Allergy/AdvReac Type Severity Reaction Status Date / Time morphine AdvReac Itching Verified 01/24/19 10:25 Anes History & Medical History - Anesthetic History Anesthesia Complications: reports: No previous complications - Medical History Cardiovascular: reports: Arrhythmia Pulmonary: reports: Asthma Gastrointestinal: reports: GERD, Colon polyps, Other (cecal adenocarcinoma) Urinary: reports: Incontinence Neuro: reports: None, Other (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) Musculoskeletal: reports: Osteoarthritis, Osteoporosis, Other Endocrine/Autoimmune: reports: None Blood Disorders: reports: None Skin: reports: Other Smoking Status: Never smoker - Surgical History General: Appendectomy, Bowel surgery, Colonoscopy Eyes Ears Nose Throat (EENT): Tonsil/Adenoidectomy, Other Urologic: Bladder surgery Gynecologic: Hysterectomy, Other Neurologic: Other Orthopedic: Spine surgery (anterior lumbar spine fusion), Other (Bilateral Vásquez's neurectomies) Exam General: Alert, Oriented x3, Cooperative, No acute distress Dental: Dentures full Upper, Dentures full Lower Mouth Openin Fingerbreadth Neck Mobility: Normal Mallampati classification: I Thyromental Distance: greater than 6 cm Respiratory: Lungs clear, Normal breath sounds, No respiratory distress, No accessory muscle use Cardiovascular: Regular rate, Normal S1, Normal S2, No murmurs Mental/Cognitive Status: Alert/Oriented X3, Normal for patient Plan Anesthesia Type: MAC Consent for Procedure(s) Verified and Reviewed: Yes Code Status: Attempt Resuscitation ASA classification: 3-Severe systemic disease Is this case an emergency?: No
[2019-02-20] MEDS ORDERED: PROPOFOL 200 MG/20 ML VIAL IVP ONE (10:18)
[2019-02-20] MEDS ORDERED: KETOROLAC 15 MG/ML VIAL IVP ONE (10:18)
[2019-02-20] MEDS ORDERED: fentaNYL 100 MCG/2 ML VIAL IVP ONE (10:18)
[2019-02-20] MEDS ORDERED: MIDAZOLAM 2 MG/2 ML VIAL IVP ONE (10:18)
[2019-02-20] MEDS ORDERED: ONDANSETRON 4 MG/2 ML VIAL IVP ONE (10:18)
[2019-02-20] MEDS ORDERED: ceFAZolin 1 GM VIAL IR ONE (10:48)
[2019-02-20] MEDS ORDERED: LIDOCAINE 1% 50 ML MDV SUBQ ONE ×2 (10:49)
[2019-02-20] MEDS ORDERED: ONDANSETRON 4 MG/2 ML VIAL IVP PRN (11:19)
[2019-02-20] MEDS ORDERED: HYDROcod/ACETAM 5/325 MG TABLET PO PRN (11:19)
--- NOTE | 2019-02-20 11:50 | OPERATIVE REPORT ---
DATE OF SERVICE: 02/20/2019 Physician: Bladimir Mcintyre MD PREOPERATIVE DIAGNOSIS: Stage IV adenocarcinoma of the colon. POSTOPERATIVE DIAGNOSIS: Stage IV adenocarcinoma of the colon. PROCEDURE PERFORMED: Insertion of PowerPort implantable venous access device. ANESTHESIA: Local plus monitored anesthesia care by Arden Ricks CRNA. SURGEON: Bladimir Mcintyre MD ESTIMATED BLOOD LOSS: 5 mL COMPLICATIONS: None. FINDINGS: A standard profile PowerPort reservoir was placed in the left infraclavicular fossa. A single lumen catheter was placed via an infraclavicular approach accessing the subclavian vein with catheter tip in the superior vena cava. INDICATIONS FOR PROCEDURE: Patient is a 68-year-old woman with a recent diagnosis of stage IV adenocarcinoma of the colon. She was advised to undergo placement of a PowerPort to facilitate adjuvant chemotherapy. TECHNIQUE: After informed consent, patient was taken to the operating room where she was sedated and monitored. Preoperative preparation included administration of 2 grams of cefazolin intravenously within an hour of the incision and application of sequential calf compression boots. Her anterior neck and chest wall were prepared with ChloraPrep solution and draped in the usual sterile fashion; 1% lidocaine plain was used for local infiltration of anesthesia, a total of 18 mL was used. Patient was placed in steep Trendelenburg position. Needle and syringe were used to access the left subclavian vein via an infraclavicular approach. A guidewire was then passed into the central venous circulation. Guidewire position was confirmed with fluoroscopy. The guidewire tract in the chest wall was dilated, following which a single lumen PowerPort Silastic catheter, which had been flushed with sterile saline, was then passed through the dilator sheath into the central venous circulation, and catheter tip was again confirmed with fluoroscopy. A subcutaneous pocket was then created by making a transverse incision from the catheter exit point medially for a distance of 3 cm. Hemostasis achieved with electrocautery. Subcutaneous pocket was created, sufficient size to allow placement of the reservoir against the pectoralis fascia. After the pocket had been created and hemostasis achieved, the wound was irrigated with antibiotic solution containing 1 gram cefazolin per liter following which the reservoir, which had been flushed with sterile saline was then connected to the catheter and secured onto the hub with the locking device. The reservoir was then placed into the pocket. Care was taken to avoid excessive redundancy or kinking of the catheter. The reservoir was secured to the pectoral muscle fascia with two 4-0 nylon sutures. After hemostasis again ensured, the wound was irrigated with antibiotic solution, following which wound closure was accomplished in layers using continuous 3-0 Vicryl for subcutaneous tissues and 4-0 Monocryl subcuticular skin closure and Dermabond. The reservoir was then accessed percutaneously with a Nichols needle and was seen to aspirate blood and flush easily. It was flushed with 10 mL of sterile saline. The procedure was then terminated, and patient was transferred out of the operating room in satisfactory condition. Sponge and needle counts were correct. No drains were used. Followup portable upright chest x-ray is pending. TD: 02/20/2019 11:33 MTDToni
--- NOTE | 2019-02-20 11:58 | XRAY Report ---
Reason: s/p port placement Procedure Date: 02/20/2019 Accession Number: [id number] / [id number] Procedure: XR - Chest 1 View X-Ray CPT Code: 45844 FULL RESULT: EXAM: CHEST RADIOGRAPHY EXAM DATE: 02/20/2019 11:52 AM. CLINICAL HISTORY: S/p port placement. COMPARISON: CHEST 2 VIEW 01/24/2019 1:32 PM. TECHNIQUE: 1 view. FINDINGS: Lungs/Pleura: Unchanged linear basilar opacities likely reflect atelectasis. No new focal consolidation. No pneumothorax. Mediastinum: Stable heart size and mediastinum. Other: Left chest port catheter terminates in the mid SVC. IMPRESSION: 1. Expected position of left-sided chest port catheter. 2. No pneumothorax. 3. No new airspace consolidation. RADIA
[2019-02-20 12:13] VITALS: BP 115/62
== END 2019-02-20 08:53 | disposition home or self-care (01) ==
LOC: SDS 08:52
PROVIDERS: ATTEND Internal Medicine Gastroenterology
PROC: 02HV33Z Insertion of Infusion Device into Superior Vena Cava, Percutaneous Approach (ICD-10-PCS; 2019-02-20)
PROC: 0JH60WZ Insertion of Totally Implantable Vascular Access Device into Chest Subcutaneous Tissue and Fascia, Open Approach (ICD-10-PCS; principal; 2019-02-20 10:00)
DX: C18.0 Malignant neoplasm of cecum (principal); R41.3 Other amnesia; J44.9 Chronic obstructive pulmonary disease, unspecified; J45.991 Cough variant asthma; Z87.440 Personal history of urinary (tract) infections; Z86.011 Personal history of benign neoplasm of the brain; Z90.49 Acquired absence of other specified parts of digestive tract; Z51.5 Encounter for palliative care; Z79.51 Long term (current) use of inhaled steroids; Z86.79 Personal history of other diseases of the circulatory system
CPT/HCPCS: 36561; 71045; C1788; J0690; J7120

== ENCOUNTER 2019-02-22 09:00 | Outpatient (CLI) | payer MEDICARE, OTHER ==
[2019-02-22] MEDS ORDERED: IOVERSOL 320 100 ML VIAL IVP ONE ×2 (09:28→10:38)
[2019-02-22] MEDS ORDERED: GADOBUTROL 10 MMOL/10 ML VIAL IVP ONE (10:25)
--- NOTE | 2019-02-22 13:19 | MRI Report ---
Reason: COLON CA, BRAIN TUMOR, MEMORY DEFICIT Procedure Date: 02/22/2019 Accession Number: [id number] / [id number] Procedure: MRI - Brain / CPT Code: FULL RESULT: EXAM: MRI BRAIN WITHOUT AND WITH CONTRAST EXAM DATE: 02/22/2019 10:33 AM. CLINICAL HISTORY: 68-year-old woman with brain tumor, colon cancer, and memory deficit. COMPARISON: BRAIN W/WO 02/04/2017 1:00 PM MRI BRAIN W W/O CON- 01/29/2010 11:15 AM. TECHNIQUE: Multiplanar, multisequence T1-weighted and fluid-sensitive MR sequences of the brain were performed before and after administration of intravenous contrast. Sequences optimized for routine evaluation. Other: None. IV Contrast: . FINDINGS: Parenchyma: Faint region of enhancement is present in the anteromedial right temporal lobe and amygdala measuring approximately 21 x 13 mm in maximum axial dimensions, not significantly changed since the 01/29/2010 MRI. This lesion demonstrates minimal FLAIR hyperintensity and prominent susceptibility artifact. No significant mass-effect. The remainder of the parenchyma demonstrates mild burden of nonspecific FLAIR hyperintensities in the deep cerebral white matter, similar to the 02/04/2017 exam and a common finding in this age group. No evidence of acute infarct on diffusion weighted sequence. Pituitary: Unremarkable. Ventricles and Extra-axial Spaces: Ventricles are symmetric and normal in size for age. Extra-axial spaces are unremarkable. No abnormal enhancement. Orbits: Unremarkable. Sinuses: Paranasal sinuses and mastoid air cells are clear. Major Vascular Flow Voids: Intact. Dural Venous Sinuses and Major Central Veins: Patent on post-contrast images. IMPRESSION: 1. Lesion in the anteromedial right temporal lobe with faint enhancement and central susceptibility artifact, not significantly changed since the 01/29/2010 exam. Again, appearance and stability favor atypical, benign vascular malformation. RADIA
--- NOTE | 2019-02-24 14:55 | CT Report ---
Reason: COLON CANCER Procedure Date: 02/22/2019 Accession Number: [id number] / [id number] Procedure: CT - CHEST W CPT Code: FULL RESULT: EXAM: CT CHEST EXAM DATE: 02/22/2019 09:48 AM. CLINICAL HISTORY: COLON CANCER. COMPARISONS: CHEST W/O 02/18/2018 11:21 AM ABDOMEN/PELVIS W/ 01/16/2019 10:13 PM. TECHNIQUE: Routine helical CT imaging was performed through the chest. IV contrast: 80 mL Optiray 320. Reconstructions: Coronal and sagittal. In accordance with CT protocol optimization, one or more of the following dose reduction techniques were utilized for this exam: automated exposure control, adjustment of mA and/or KV based on patient size, or use of iterative reconstructive technique. FINDINGS: Lungs/Pleura: A 6 mm right lower lobe nodule is not significantly changed and has linear/diskoid morphology on the coronal and sagittal reformats. A few tiny subpleural nodular densities in the lower lobes are unchanged. No additional nodule. Mild scarring in the anterior right upper lobe. No airspace consolidation. Mild scarring in the lingula. No pleural effusion or pneumothorax. Mediastinum: The heart is normal in size. No pericardial effusion. No mediastinal or hilar lymphadenopathy. No central pulmonary emboli. Left chest port catheter in expected position. Small hiatal hernia. Bones: No aggressive osseous lesion. Visualized Abdomen: 3.4 cm subcapsular right lobe lesion and an adjacent 2.6 cm hyperattenuating lesion measuring larger than before. There are 7 mm and 9 mm lesions anteriorly not definitely seen previously (image 96 and 100 series 3). There is also a 9 mm lesion superiorly and possible 9 mm lesion in the left lobe (images 79 and 80). 7 mm gastrohepatic lymph node is stable to slightly increased and not pathologically enlarged. Other: None. IMPRESSION: 1. 6 mm right lower lobe nodule is unchanged and has features suggestive of a benign etiology. No definite evidence of metastatic disease in the chest. 2. Mildly increased right posterior liver metastases with several new subcentimeter lesions as described. RADIA
== END 2019-02-22 09:01 | disposition home or self-care (01) ==
LOC: DI 09:00
PROVIDERS: ATTEND Internal Medicine Gastroenterology
DX: C18.9 Malignant neoplasm of colon, unspecified (principal); C78.7 Secondary malignant neoplasm of liver and intrahepatic bile duct; D49.6 Neoplasm of unspecified behavior of brain; R41.3 Other amnesia; R91.1 Solitary pulmonary nodule
CPT/HCPCS: 70553; 71260; A9585; Q9967

== ENCOUNTER 2019-03-25 07:17 | Outpatient (CLI) | payer MEDICARE, OTHER ==
[2019-03-25] MEDS ORDERED: IOVERSOL 320 50 ML VIAL ONE (07:24)
[2019-03-25] MEDS ORDERED: IOVERSOL 320 100 ML VIAL IVP ONE ×2 (07:24→08:35)
[2019-03-25] MEDS ORDERED: IOVERSOL 320 50 ML VIAL PO ONE (08:35)
--- NOTE | 2019-03-26 05:12 | CT Report ---
Reason: RUQ PAIN Procedure Date: 03/25/2019 Accession Number: [id number] / [id number] Procedure: CT - Abdomen/Pelvis W CPT Code: Final Report FULL RESULT: EXAM: CT ABDOMEN AND PELVIS EXAM DATE: 03/25/2019 08:31 AM. CLINICAL HISTORY: Right upper quadrant pain with metastatic colon cancer. COMPARISONS: ABDOMEN/PELVIS W/ 01/16/2019 10:13 PM CHEST W/ 02/22/2019 9:38 AM. TECHNIQUE: Routine helical CT imaging was performed through the abdomen and pelvis. IV contrast: Yes . Enteric contrast: Yes. Reconstructions: Coronal and sagittal. In accordance with CT protocol optimization, one or more of the following dose reduction techniques were utilized for this exam: automated exposure control, adjustment of mA and/or KV based on patient size, or use of iterative reconstructive technique. FINDINGS: Lung Bases: Small hiatal hernia. Lungs appear stable from recent chest CT. Liver: Enlarging size and number of several hepatic metastases, measuring up to 35 x 28 mm peripherally in the right liver on image 23 series 3. This metastasis previously measured 30 x 17 mm. Next largest metastasis is posteriorly in the right liver on image 26 measuring 27 x 21 mm, previously 17 x 16 mm. Several new small nodules. No portal venous thrombosis. Please see below. Gallbladder/Bile Ducts: Unremarkable. Spleen: Unremarkable. Pancreas: Unremarkable. Adrenal Glands: Unremarkable. Kidneys: Unremarkable. No suspicious masses or hydronephrosis. Peritoneal Cavity/Bowel: Post right colectomy. No bowel obstruction or inflammatory process seen. No peritoneal nodularity. No free air or fluid. No significant mesenteric edema from the SMV thrombosis. Pelvic Organs: Post hysterectomy with no adnexal masses seen. The bladder appears within normal limits. Vasculature: Moderate-sized thrombosis within the superior mesenteric vein. Thrombus does not extend into the portal vein. No aneurysms or other significant abnormality. Bones: No acute or aggressive-appearing abnormality. Other: No retroperitoneal or pelvic adenopathy.. IMPRESSION: 1. No acute inflammatory or obstructive process seen in the abdomen or pelvis. 2. 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 3. Progressive multiple hepatic metastases. 4. Interval resection of the right colon. 5. Small hiatal hernia. 6. Previous hysterectomy. RADIA
== END 2019-03-25 07:18 | disposition home or self-care (01) ==
LOC: DI 07:17
PROVIDERS: ATTEND Physician Assistant
DX: C18.9 Malignant neoplasm of colon, unspecified (principal); C78.7 Secondary malignant neoplasm of liver and intrahepatic bile duct; K55.069 Acute infarction of intestine, part and extent unspecified; K44.9 Diaphragmatic hernia without obstruction or gangrene
CPT/HCPCS: 74177; Q9967

== ENCOUNTER 2019-04-17 11:24 | Outpatient (CLI) | payer MEDICARE, OTHER ==
[2019-04-17 11:51] LABS: EOSINOPHILS % (AUTO) 1.4 %; HGB - HEMOGLOBIN 13.1 g/dL (12.0-16.0); LYMPHOCYTES # (AUTO) 1.1 10^3/uL (1.5-3.5); LYMPHOCYTES % (AUTO) 37.5 %; MEAN CORPUSCULAR HGB CONC 31.1 g/dL (32.0-36.0); MEAN CORPUSCULAR VOLUME 80.2 fL (81.0-99.0); MEAN PLATELET VOLUME 10.1 fL (7.9-10.8); MONOCYTES # (AUTO) 0.3 10^3/uL (0.0-1.0); MONOCYTES % (AUTO) 11.8 %; NEUTROPHILS # (AUTO) 1.4 10^3/uL (1.5-6.6); PLT - PLATELET COUNT 110 10^3/uL (130-450); RED BLOOD COUNT 5.25 10^6/uL (4.20-5.40); RED CELL DISTRIBUTION WIDTH 15.9 % (12.0-15.0); WHITE BLOOD COUNT 2.9 x10^3/uL (4.8-10.8)
[2019-04-17 12:08] LABS: ALBUMIN 4.4 g/dL (3.2-5.5); ALBUMIN/GLOBULIN RATIO 1.3 (1.0-2.2); BILIRUBIN,TOTAL 0.7 mg/dL (0.2-1.0); CALCIUM 9.8 mg/dL (8.5-10.3); CREATININE 0.7 mg/dL (0.4-1.0); TOTAL PROTEIN 7.7 g/dL (6.7-8.2)
[2019-04-17 12:29] LABS: DIFFERENTIAL COMMENT MANUAL=AUTO DIFF; PLATELET ESTIMATE, MANUAL DECREASED (<130,000) (NORMAL); PLATELET MORPHOLOGY NORMAL APPEARANCE (NORMAL); RBC MORPHOLOGY (MULTIPLE) 1+ HYPOCHROMASIA (NORMAL)
--- NOTE | 2019-04-18 08:33 | XRAY Report ---
Reason: ABDOMINAL PAIN Procedure Date: 04/17/2019 Accession Number: [id number] / [id number] Procedure: XR - Abdomen 1 View X-Ray CPT Code: 58705 Final Report FULL RESULT: EXAM: ABDOMEN RADIOGRAPHY EXAM DATE: 04/17/2019 11:43 AM. CLINICAL HISTORY: ABDOMINAL PAIN. COMPARISON: ABDOMEN/PELVIS W/ 03/25/2019 8:24 AM. TECHNIQUE: 1 view. FINDINGS: Bowel Gas Pattern: Within normal limits. No dilated loops. Other: Previous spinal surgery. IMPRESSION: Grossly negative 1-view abdomen x-ray. RADIA
== END 2019-04-17 11:25 | disposition home or self-care (01) ==
LOC: DI 11:24
PROVIDERS: ATTEND Family Medicine
DX: R10.9 Unspecified abdominal pain (principal); R63.4 Abnormal weight loss; C18.9 Malignant neoplasm of colon, unspecified
CPT/HCPCS: 36415; 74018; 80053; 85025

== ENCOUNTER 2019-08-14 12:07 | Outpatient (CLI) | payer MEDICARE, OTHER ==
--- NOTE | 2019-08-14 14:03 | Mammography Report ---
Reason: BREAST PAIN Procedure Date: 08/14/2019 Accession Number: [id number] / [id number] Procedure: [facility] - Diagnostic Dig Bilat CPT Code: Final Report FULL RESULT: EXAM: Diagnostic Dig Bilat DATE: 08/14/2019 12:50 PM CLINICAL HISTORY: Diagnostic examination. Breast pain. History of bilateral excisional breast biopsy. TECHNIQUE: (B) - Bilateral CC and MLO views were obtained. Left ML images are obtained. COMPARISON: 09/06/2017 through 09/24/2014. PARENCHYMAL PATTERN: (D) - The breast(s) demonstrate(s) heterogeneously dense fibroglandular parenchyma. FINDINGS: Postbiopsy changes are stable. There are no suspicious masses, calcifications, or areas of distortion. IMPRESSION: Benign findings. BI-RADS category 2. RECOMMENDATION: (ANNUAL) - Recommend routine annual screening mammography. BI-RADS CATEGORY: (2) - Benign Findings. STANDARD QUALIFYING STATEMENTS: 1. This examination was not reviewed with the aid of Computer-Aided Detection (CAD). 2. A negative or benign imaging report should not preclude biopsy if clinically suspicious findings are present. 3. Dense breasts may obscure an underlying neoplasm. 4. This examination was reviewed with the aid of 3D breast imaging (tomosynthesis).
== END 2019-08-14 12:08 | disposition home or self-care (01) ==
LOC: DI 12:07
PROVIDERS: ATTEND Internal Medicine
DX: N64.4 Mastodynia (principal); C18.9 Malignant neoplasm of colon, unspecified
CPT/HCPCS: 77066

== ENCOUNTER 2019-11-02 09:12 | Day surgery (SDC) | payer MEDICARE, OTHER ==
[2019-11-02] MEDS ORDERED: fentaNYL 250 MCG/5 ML VIAL IVP ONE (09:13)
[2019-11-02] MEDS ORDERED: MIDAZOLAM 2 MG/2 ML VIAL IVP ONE (09:13)
[2019-11-02] MEDS ORDERED: LACTATED RINGERS 1,000 ML IV ONE (09:22)
[2019-11-02 12:22] VITALS: BP 128/74
== END 2019-11-02 09:13 | disposition home or self-care (01) ==
LOC: SDS 09:12
PROVIDERS: ATTEND Surgery
PROC: 0DJD8ZZ Inspection of Lower Intestinal Tract, Via Natural or Artificial Opening Endoscopic (ICD-10-PCS; principal; 2019-11-02 10:30)
DX: C18.0 Malignant neoplasm of cecum (principal); J44.9 Chronic obstructive pulmonary disease, unspecified; I47.1 Supraventricular tachycardia; R32 Unspecified urinary incontinence; R73.01 Impaired fasting glucose; D50.9 Iron deficiency anemia, unspecified; K64.8 Other hemorrhoids; K57.30 Diverticulosis of large intestine without perforation or abscess without bleeding; R63.4 Abnormal weight loss; G62.2 Polyneuropathy due to other toxic agents; T50.995D Adverse effect of other drugs, medicaments and biological substances, subsequent encounter; Z90.49 Acquired absence of other specified parts of digestive tract; Z86.718 Personal history of other venous thrombosis and embolism; Q87.89 Other specified congenital malformation syndromes, not elsewhere classified; Z79.51 Long term (current) use of inhaled steroids; Z79.899 Other long term (current) drug therapy
CPT/HCPCS: 45378; J3010; J7120

== ENCOUNTER 2020-08-15 12:15 | Outpatient (CLI) | payer MEDICARE, OTHER ==
--- NOTE | 2020-08-15 18:49 | CONSULTATION NOTE ---
Palliative Care Consultation - Referral Referring Provider: Dr. 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 She originally presented with abdominal pain, fever, tachycardia, and found to have a left shift of white count. CT of the abdomen and pelvis at that time showed concern for perforated appendicitis but found to have cecal mass with abscess. She did receive surgery of laparoscopic right colectomy and liver biopsy, the original cecal mass 5.5 x 5.7 x 5.3. She unfortunately had 3 out of 28 lymph nodes positive, at that time she received FOLFOX x12 cycles completed in 09/2019, with reduction of oxaliplatin due to neuropathy. She continued to show progressive disease, lung lesions, but did receive resection of her liver mets 11/2019. She received FOLFIRI with Avastin, but eventually discontinued because of poor tolerance and continued progression on CT scan of disease, last treated 06/30. Patient had seen oncology on 07/31 for consideration of initiation of regprafenib, but after review with most likely only getting progression free survival of only 2 months, decided to forego. 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 She has had increasing worsening cough. Patient is aware of her prognosis and seriousness of her illness. She had asked to meet with palliative care, to define goals of care, after much discussion they align given her prognosis and goals of comfort, with hospice. Recommended transition to hospice team for more robust support and active symptom management. 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 Support System: Patient was , lived in [place], ran and [place]. She moved to [facility] to be near her son, and Gray, they have been 6 years. They met at a Bible story, she has 2 sons in [place], the 1 son in [place] with a 7-year-old grandson she sees frequently. Gray has a son and daughter. Gray is 91 years old, but in fairly good health, though recently had a hip surgery. But no other family in the area. She is close to her siblings, she has 2 brothers and a sister in [place]. Family History - Family History Family History: Mother: , Cancer (of a brain tumor), Father: , Cancer, Brother: Alive and Well, Cancer Medications/Allergies - Medications Home Medications: Ambulatory Orders Medication Instructions Recorded Confirmed Apixaban [Eliquis] 5 mg PO BID 10/18/19 08/16/20 Calcium Carbonate/Vitamin D3 1 tab PO DAILY 10/18/19 08/16/20 [Calcium 600-Vit D3 400 Tablet] Potassium Chloride [Klor-Con 10] 1 tab PO DAILY 10/18/19 08/16/20 Vitamin B Complex 1 tab PO DAILY 10/18/19 08/16/20 predniSONE [Prednisone] 10 mg PO DAILY 10/18/19 08/16/20 Gabapentin 100 mg PO TID 12/20/19 08/16/20 Ibuprofen [Motrin Ib] 200 mg PO PRN PRN 01/10/20 08/16/20 Codeine Phosphate/Guaifenesin 10 ml PO Q8H PRN #1 liquid 06/12/20 08/16/20 [Guaifen-Codeine 200-20 mg/10Ml] Prochlorperazine Maleate 10 mg PO Q4HR PRN 06/14/20 08/16/20 [Compazine] Albuterol Sulfate [Proair Hfa 1 - 2 puffs INH Q4H PRN #1 gm 07/15/20 08/16/20 Inhaler] Benzonatate [Tessalon] 1 - 2 cap PO TID PRN #60 cap 07/15/20 08/16/20 dexAMETHasone [Decadron] 1 tab PO BID PRN 07/17/20 08/16/20 traMADol [Ultram] 50 mg PO Q4HR PRN 08/16/20 08/16/20 - Allergies Allergies/Adverse Reactions: Allergies Allergy/AdvReac Type Severity Reaction Status Date / Time morphine AdvReac Itching Verified 07/31/20 13:44 oxycodone AdvReac Itching Verified 07/31/20 13:44 tramadol AdvReac Itching Verified 07/31/20 13:44 Review of Systems - Constitutional Constitutional: reports: Fatigue (worsening), Weakness, Poor appetite, Weight loss (121- 5-10 pounds over last 2 months) - Eyes Eyes: reports: Vision loss, Corrective lenses - Ears, Nose & Throat Ears, Nose & Throat: reports: Dry mouth - Cardiovascular Cardiovascular: reports: Chest pain (mid sternal; worsens with cough), Exertional dyspnea, Decr. exercise tolerance - Respiratory Respiratory: reports: Cough (dry; worse when lays down), SOB with exertion - Gastrointestinal Gastrointestinal: reports: Abdominal pain (mild), Diarrhea (almost daily), Reflux/heartburn, Poor appetite, Early satiety, Other (taste changes). denies: Nausea - Genitourinary Genitourinary: reports: Incontinence - Musculoskeletal Musculoskeletal: reports: Muscle pain, Muscle aches, Stiffness, Joint pain (right knee/multiple joints- recently off Prednsione made it worse) - Integumentary Integumentary: reports: Dryness - Neurological Neurological: reports: General weakness, Numbness (CIPN) - Psychiatric Psychiatric: reports: Depression (depressive symptoms; no persistent) - Hematologic/Lymphatic Hematologic/Lymph: reports: Blood clots (on eliquis). denies: Recurrent infections - All Other Systems All Other Systems: reports: Reviewed and negative Physical Exam - Vital Signs Temperature: 97.0 C Pulse Rate: 77 Respiratory Rate: 18 O2 Saturation: 97 (ra @ rest) Blood Pressure: 118/72 - Physical Exam General Appearance: positive: No acute distress, Alert Eyes Bilateral: positive: Normal inspection ENT: positive: No signs of dehydration Neck: positive: Trachea midline Cardiovascular: positive: Regular rate & rhythm Respiratory: positive: Diminished in bases. negative: No respiratory distress (breathless with ambulation / activity), Wheezes, Rales, Rhonchi Abdomen: positive: Soft Skin: positive: Pallor, Dryness Extremities: positive: No pedal edema Neurologic/Psychiatric: positive: Oriented x3, Mood/affect nml Palliative Care - POLST Patient has POLST: Yes POLST Status: DNR, Comfort Measures (completed at visit) Pain: Pain worsening, Location (midsternal area; multiple joint pain right knee most problematic) Tiredness/Fatigue: Severe (7-10) Drowsiness/Sedation: Moderate (4-6) Nausea: Mild (1-3) Anorexia: Moderate (4-6), Weight loss Dyspnea: Severe (7-10), Comment (with activity;) Depression: Mild (1-3) Anxiety: Moderate (4-6) Feelings of wellbeing/Perceived Quality of Life: Fair, Worsening Sleep: Sleeps well Performance Status: Patient is mostly limited by her fatigue and her breathlessness with any activity. She is able to manage her ADLs currently, but is concerned into the future. She does have an [employer] cancer policy, is wondering if this will support caregivers. Currently her PPS is 60% - Palliative Care Discussion: Patient does understand the seriousness of her illness, her prognosis is most likely months, she reports she is not afraid of , as she is a Lutheran but she is certainly "not ready". Her mother of a brain tumor, she always felt like she would of something similar. She has not had any experience with hospice, though her parents had both passed, she was not involved in their ongoing care. Her Gray, lost his to cancer several years ago, but she in the hospital. He is concerned about what resources might be available, but given his position as a senior site manager to seniors in his episcopal, he is familiar with decline as well, though his background is [facility] they have involved with the episcopal in [place]. We did discuss the continuum of hospice, and recommendation to initiate hospice services for more robust support. Ida is feeling somewhat anxious about getting some of her will done, some legal affairs, she does have some of her arrangements made and plans to be cremated and shipped to [place] to be in her mother's family plot. As with most, the family visits have been limited secondary to the pandemic, but her 1 son from [place] is coming within the month, and a brother from [place]. He just had a visit from her grandson. Patient is hoping for improved symptom management, though does recognize her worsening symptom burden is progressive disease. After much discussion, particularly given concerns regarding caregiving support, it was agreed would be helpful to have son involved in conversation with hospice admission. She has not asked him what his involvement could be, there is some tension between Gray and him, but clearance was very supportive of the idea as well. Mirna would like Gray to be her DPOA, we did complete her POLST, with DN AR/DNI and comfort measures. Antibiotics for infection for comfort depending where she is in the trajectory and no medically assisted nutrition. Impression and Recommendations - Palliative Care Impression: This is a 70-year-old woman with stage IV adenocarcinoma of the cecum with liver and lung mets. She has had functional decline, increased symptom burden, does present with challenges with opioid allergies. At this time she has no further treatment options that will benefit her quantity and/or quality of life. She would like to focus on quality of life issues, and list increased support for her and her , and goals aligned with hospice. Palliative care meeting with patient and to define goals of care, with transition to hospice and completion of POLST. Recommendations/Counseling Done: 1. Pain of neoplastic origin. This is multifactorial, she does have underlying joint pain and discomfort, which is causing her some functional decline. Patient has been on prednisone in the past with good control, will reinitiate prednisone 10 mg daily, instructed to take with food. She also has peripheral neuropathy from her oxaliplatin him, she has tolerated the gabapentin without any undue side effects, will go ahead and increase to 100 mg 3 times daily, she has trialed 300 mg capsules before with oversedation. Will titrate slowly. She does have multiple opioids she has tried for her cough and pain with Again, side effects include pruritus, face rash. We will try tramadol though it is on her list, see if less pronounced itching, to be able to have some pain in her toolbox for breakthrough pain. If she has persistent pain, can consider initiating methadone at low dose with supervision of hospice. 2. Cough. Patient has trialed Tessalon Perls with some relief, has some cough syrup, has trialed opioids but unable to tolerate secondary side effects. Though it is problematic, it is tolerable at this time. 3. Fatigue. This is multifactorial, she gets breathless with any kind of activity, I has noted more functional decline, and difficulty with activity intolerance. Encouraged to pace herself, set priorities, given patient's cardiac history did not recommend Ritaliln. Reviewed prednisone may help her feel little bit better for the short-term. 4. Anorexia. Patient has early satiety, her reports "she eats like a bird", she does feel hungry but has problematic as far as taste changes. She does not identify it is nausea, he does not cook, they do get takeout. Hoping her prednisone will help with this as well, encourage small frequent feedings, and continue with fluids. 5. Headache. Patient reports has history of tension headaches, she describes it as whole head and stabbing. She had been discouraged from taking acetaminophen, we discussed she can take low doses even with her liver mets. Just not to exceed 2000 mg in 24 hours. She has found this effective in the past. 6. Diarrhea. Patient has loose stools at least once a day, has not been problematic. She does use Imodium if needed. She has been on potassium long- term, encouraged to continue this given her potassium is sitting at 3.7. Can stop when looking further at pill burden. 7. Advanced care planning. Met with patient and regarding goals of care, patient is aware of the seriousness of her illness and expected continued decline. Patient's goals aligned with focus on comfort, would like to have a at home, encouraged inclusion of son in hospice admission to be able to provide support and involvement. Counseling provided regarding the hospice benefit, particularly in the context of questions from , patient would like to proceed. POLST completed with DN AR/DNI and comfort measures, patient would accept antibiotics at this point for treatment of reversible conditions in her home, but would like to be at home for end-of-life. 75 minutes with greater than 50% of this done in counseling regarding pain and symptom management, goals of care, completion of the POLST, counseling regarding hospice and anticipatory guidance. Coordination of care with notification of oncologists of transition to hospice, as well as follow-up with hospice team
== END 2020-08-15 12:16 | disposition home or self-care (01) ==
LOC: PC 12:15
PROVIDERS: ATTEND Nurse Practitioner Adult Health
DX: Z51.5 Encounter for palliative care (principal); C18.0 Malignant neoplasm of cecum; C78.7 Secondary malignant neoplasm of liver and intrahepatic bile duct; C78.00 Secondary malignant neoplasm of unspecified lung; Z66 Do not resuscitate; G89.3 Neoplasm related pain (acute) (chronic); G62.0 Drug-induced polyneuropathy; T45.1X5A Adverse effect of antineoplastic and immunosuppressive drugs, initial encounter; R05 Cough; R53.83 Other fatigue; R63.0 Anorexia; G44.209 Tension-type headache, unspecified, not intractable; R19.7 Diarrhea, unspecified; T40.2X5D Adverse effect of other opioids, subsequent encounter; Z86.718 Personal history of other venous thrombosis and embolism; Z79.01 Long term (current) use of anticoagulants
CPT/HCPCS: 99345